=== PATIENT | female | born 2005 | race Caucasian/White ===

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

== ENCOUNTER 2023-02-13 00:59 | Emergency (ER) | payer BC, OTHER ==
--- NOTE | 2023-02-13 01:43 | ED ---
Head Injury HPI - General Chief complaint: Head Injury Stated complaint: Head Injury Time Seen by Provider: 02/13/23 01:17 Source: patient Mode of arrival: ambulatory - History of Present Illness Initial comments: Patient is a 17-year-old female presenting to the emergency room after hitting her head on a door just prior to her arrival to the emergency room. She reports swelling and pain with a small laceration to her forehead from the event and a mild headache initially but denies any headache at this time. She denies any loss of consciousness. She denies any other complaints or concerns including any focal neurological deficits, weakness, blurred or double vision, dizziness, nausea or vomiting. She is healthy without any significant past medical history and does not take any medications on a regular basis. - Related Data Home Medications Medication Instructions Recorded Confirmed HYDROcodone/APAP 5-325MG [[place] 1 - 2 tab PO Q4HR PRN 12/04/20 12/04/20 5-325] Ibuprofen [Advil] 400 mg PO Q8H PRN 12/04/20 12/04/20 Previous Rx's Medication Instructions Recorded Azithromycin [Zithromax Z Pack] 250 mg PO DAILY 4 Days #4 tab 12/02/22 Allergies/Adverse reactions: Allergies Allergy/AdvReac Type Severity Reaction Status Date / Time Penicillins Allergy Unknown Itching Verified 02/13/23 01:06 Review of Systems ROS Statement: Those systems with pertinent positive or pertinent negative responses have been documented in the HPI. ROS Other: All systems not noted in ROS Statement are negative. Past Medical History Past Medical History: No Reported History History of Any Multi-Drug Resistant Organisms: None Reported Past Surgical History: No Surgical Hx Reported Past Psychological History: Anxiety Smoking Status: Vaper Past Alcohol Use History: None Reported Past Drug Use History: None Reported - Past Family History Mother Family Medical History: Congestive Heart Failure (CHF), Diabetes Mellitus, Hypertension Additional Family Medical History / Comment(s): Patient's maternal grandparents due to CHF/diabetes/HTN per mother. Father Family Medical History: Congestive Heart Failure (CHF), Diabetes Mellitus Additional Family Medical History / Comment(s): Patient's paternal grandparents have diabetes and HTN. General Exam - General Exam Comments Initial Comments: GENERAL: No acute distress, well developed, well nourished. HEENT: Normocephalic. Pupils equal, round, reactive to light. Moist mucous membranes. EOMI. Oval hematoma center mid forehead approximately 2.5 cm x 2 in size with height of approximately 1 cm. Centrally located laceration to hematoma minimal depth well approximated 0.75 cm in length. LUNGS: No respiratory distress or use of accessory muscles. HEART: Regular rate.. ABDOMEN: Non-distended. BACK: Normal inspection. EXTREMITIES: No edema. No tenderness. Moves all extremities. NEUROLOGIC: Alert & oriented x 3. CN II-XII grossly intact. PSYCHIATRIC: Normal affect and behavior. DERMATOLOGIC: Small linear laceration to forehead as indicated above. All other visualized skin intact, without rashes or lesions noted. Course Vital Signs 02/13/23 02/13/23 01:03 02:20 Temperature 98.4 F 98.7 F Pulse Rate 95 80 Respiratory 16 18 Rate Blood Pressure 134/77 125/60 O2 Sat by Pulse 100 99 Oximetry Medical Decision Making - Medical Decision Making Was pt. sent in by a medical professional or institution (, PA, TUBING OILER, urgent care, hospital, or halfway...) When possible be specific @ -No Did you speak to anyone other than the patient for history (EMS, parent, family, police, friend...)? What history was obtained from this source @ -No Did you review nursing and triage notes (agree or disagree)? Why? @ -I reviewed and agree with nursing and triage notes Were old charts reviewed (outside hosp., previous admission, EMS record, old EKG, old radiological studies, urgent care reports/EKG's, halfway records)? Report findings @ -No old charts were reviewed Differential Diagnosis (chest pain, altered mental status, abdominal pain women, abdominal pain men, vaginal bleeding, weakness, fever, dyspnea, syncope, heada aurora, dizziness, GI bleed, back pain, seizure, CVA, palpatations, mental health, musculoskeletal)? @ -not applicable EKG interpreted by me (3pts min.). @ -None done X-rays interpreted by me (1pt min.). @ -None done CT interpreted by me (1pt min.). @ -None done U/S interpreted by me (1pt. min.). @ -None done What testing was considered but not performed or refused? (CT, X-rays, U/S, labs)? Why? @ -Computed tomography scan of head considered but deferred due to age, no loss of consciousness, normal neurological exam and lack of blood thinner usage. What meds were considered but not given or refused? Why? @ -None Did you discuss the management of the patient with other professionals (professionals i.e. , PA, TUBING OILER, lab, RT, psych nurse, social work instructor, welding machine operator resistance, teacher, money position officer, medical case worker)? Give summary @ -No Was smoking cessation discussed for >3mins.? @ -No Was critical care preformed (if so, how long)? @ -No Were there social determinants of health that impacted care today? How? (Homelessness, low income, unemployed, alcoholism, drug addiction, transportation, low edu. Level, literacy, decrease access to med. care, [facility], rehab)? @ -No Was there de-escalation of care discussed even if they declined (Discuss DNR or withdrawal of care, Hospice)? DNR status @ -No What co-morbidities impacted this encounter? (DM, HTN, Smoking, COPD, CAD, Cancer, CVA, ARF, Chemo, Hep., AIDS, mental health diagnosis, sleep apnea, morbid obesity)? @ -None Was patient admitted / discharged? Hospital course, mention meds given and route, prescriptions, significant lab abnormalities, going to OR and other pertinent info. @ -17-year-old female presenting to the emergency room after hitting her head on a door just prior to arrival. Hematoma to forehead noted with small laceration. No loss of consciousness, no blood thinner usage, no severe symptoms indicating need for computed tomography scan. Small laceration noted will apply Steri-Strips to aid in the healing process, no indication for suture closure. No indication for medication administration. No indication for serum studies. Concussive symptoms discussed including when to return to the emergency room. Wound care of hematoma and laceration reviewed. Follow-up care with her primary care provider encouraged. Will discharge home in stable condition with Steri-Strips intact to laceration on hematoma of forehead advising follow-up with primary care provider. Undiagnosed new problem with uncertain prognosis? @ -No Drug Therapy requiring intensive monitoring for toxicity (Heparin, Nitro, Insulin, Cardizem)? @ -No Were any procedures done? @ -Yes, Steri-Strips applied to forehead, tolerated well. Diagnosis/symptom? @ -Hematoma to forehead head Acute, or Chronic, or Acute on Chronic? @ -Acute Uncomplicated (without systemic symptoms) or Complicated (systemic symptoms)? @ -Uncomplicated Side effects of treatment? @ -No Exacerbation, Progression, or Severe Exacerbation? @ -No Poses a threat to life or bodily function? How? (Chest pain, USA, MS, pneumonia, PE, COPD, DKA, ARF, appy, cholecystitis, CVA, Diverticulitis, Homicidal, Suicidal, threat to staff... and all critical care pts) @ -No Diagnosis/symptom? @ -Laceration to forehead Acute, or Chronic, or Acute on Chronic? @ -Acute Uncomplicated (without systemic symptoms) or Complicated (systemic symptoms)? @ -Uncomplicated Side effects of treatment? @ -none Exacerbation, Progression, or Severe Exacerbation] @ -no Poses a threat to life or bodily function? @ -no Case discussed with Dr. Apple Disposition Clinical Impression: Traumatic hematoma of forehead, Laceration Disposition: HOME SELF-CARE Condition: Stable Instructions (If sedation given, give patient instructions): Concussion (ED), Steristrips (ED) Additional Instructions: Please keep wound to forehead clean and dry. Do not pull off Steri-Strips. Monitor for concussive symptoms and return to the emergency room if they become severe. Please follow-up with your primary care provider. Please return to the Emergency Department if symptoms worsen or any other concerns. Is patient prescribed a controlled substance at d/c from ED?: No Referrals: None,Stated [Primary Care Provider] - 1-2 days Time of Disposition: 01:57
[2023-02-13 02:21] VITALS: BP 125/60; PULSE 80; RESP 18; TEMP 98.7
== END 2023-02-13 02:44 | disposition home or self-care (01) ==
LOC: EC 00:59
DX: S01.81XA Laceration without foreign body of other part of head, initial encounter (principal); F41.9 Anxiety disorder, unspecified; F17.290 Nicotine dependence, other tobacco product, uncomplicated; Z88.0 Allergy status to penicillin; W22.8XXA Striking against or struck by other objects, initial encounter
CPT/HCPCS: 12011; 99283

== ENCOUNTER 2023-04-17 00:59 | Emergency (ER) | payer BC, OTHER ==
[2023-04-17] MEDS ORDERED: LIDOCAINE 1% INJ 10MG/ML (30 ML VIAL-PF) SQ ONE (01:20)
[2023-04-17] MEDS ORDERED: DIPH,PERTUS(ACELL)TETVAC-LF 0.5 ML VIAL IM ONE (01:20)
--- NOTE | 2023-04-17 01:27 | ED ---
Wound/Laceration HPI - General Chief Complaint: Wound/Laceration Stated Complaint: Right leg injury Time Seen by Provider: 04/17/23 01:16 Source: patient Mode of arrival: ambulatory Limitations: no limitations - History of Present Illness Initial Comments: Patient is a 18-year-old female presenting to the emergency room with a laceration to her right anterior lower extremity which she obtained approximately 2 hours prior to her arrival to the emergency room on a pullout couch. She reports that she was assisting pulling it out when another friend accidentally pushed the metal into her leg causing the laceration. She is unsure of her tetanus status. She denies any range of motion impairment, concern for foreign body, numbness or tingling in the extremity. She denies any injury to any other location. She denies any significant past medical history and does not take any medications on a regular basis. - Related Data Home Medications Medication Instructions Recorded Confirmed HYDROcodone/APAP 5-325MG [[place] 1 - 2 tab PO Q4HR PRN 12/04/20 12/04/20 5-325] Ibuprofen [Advil] 400 mg PO Q8H PRN 12/04/20 12/04/20 Previous Rx's Medication Instructions Recorded Azithromycin [Zithromax Z Pack] 250 mg PO DAILY 4 Days #4 tab 12/02/22 Allergies Allergy/AdvReac Type Severity Reaction Status Date / Time Penicillins Allergy Unknown Itching Verified 04/17/23 01:03 Review of Systems ROS Statement: Those systems with pertinent positive or pertinent negative responses have been documented in the HPI. ROS Other: All systems not noted in ROS Statement are negative. 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 History of Any Multi-Drug Resistant Organisms: None Reported Past Surgical History: No Surgical Hx Reported Past Psychological History: Anxiety Smoking Status: Vaper Past Alcohol Use History: None Reported Past Drug Use History: None Reported - Past Family History Mother Family Medical History: Congestive Heart Failure (CHF), Diabetes Mellitus, Hypertension Additional Family Medical History / Comment(s): Patient's maternal grandparents due to CHF/diabetes/HTN per mother. Father Family Medical History: Congestive Heart Failure (CHF), Diabetes Mellitus Additional Family Medical History / Comment(s): Patient's paternal grandparents have diabetes and HTN. General Exam Limitations: no limitations General appearance: alert, in no apparent distress Head exam: Present: atraumatic, normocephalic, normal inspection Eye exam: Present: normal appearance, PERRL, EOMI. Absent: scleral icterus, conjunctival injection, periorbital swelling ENT exam: Present: normal exam, mucous membranes moist Neck exam: Present: normal inspection, full ROM Respiratory exam: Absent: respiratory distress, accessory muscle use Cardiovascular Exam: Present: regular rate GI/Abdominal exam: Absent: distended Right Lower Leg exam: Present: full ROM, laceration (Anterior medial aspect 2 cm in length). Absent: swelling, deformity, crepitus, dislocation Neurovascular tendon exam: Present: no vascular compromise Gait: observed and normal Back exam: Present: normal inspection Neurological exam: Present: alert, oriented X3, CN II-XII intact Psychiatric exam: Present: normal affect, normal mood Skin exam: Present: other (Laceration as indicated above) Course Vital Signs 04/17/23 04/17/23 01:02 01:03 Temperature 99.1 F 98 F Pulse Rate 77 96 Respiratory 16 18 Rate Blood Pressure 122/86 138/57 O2 Sat by Pulse 97 99 Oximetry Procedures - Laceration Laceration #1 Indication: laceration Site: lower extremity Size (cm): 2 Description: linear Depth: simple, single layer Anesthetic Used: lidocaine 1% Anesthesia Technique: local infiltration Pre-repair: deep structures intact Type of Sutures: nylon Size of Sutures: 4-0 Technique: simple, interrupted Patient Tolerated Procedure: well, no complications Medical Decision Making - Medical Decision Making Was pt. sent in by a medical professional or institution (Dr. PA, [facility], urgent care, hospital, or long-term...) When possible be specific @ -No Did you speak to anyone other than the patient for history (EMS, parent, family, police, friend...)? What history was obtained from this source @ -No Did you review nursing and triage notes (agree or disagree)? Why? @ -I reviewed and agree with nursing and triage notes Were old charts reviewed (outside hosp., previous admission, EMS record, old EKG, old radiological studies, urgent care reports/EKG's, long-term records)? Report findings @ -No old charts were reviewed Differential Diagnosis (chest pain, altered mental status, abdominal pain women, abdominal pain men, vaginal bleeding, weakness, fever, dyspnea, syncope, heada aurora, dizziness, GI bleed, back pain, seizure, CVA, palpatations, mental health, musculoskeletal)? @ -not applicable EKG interpreted by me (3pts min.). @ -None done X-rays interpreted by me (1pt min.). @ -None done CT interpreted by me (1pt min.). @ -None done U/S interpreted by me (1pt. min.). @ -None done What testing was considered but not performed or refused? (CT, X-rays, U/S, labs)? Why? @ -None What meds were considered but not given or refused? Why? @ -None Did you discuss the management of the patient with other professionals (professionals i.e. , PA, [facility], lab, RT, psych nurse, manager social services, rectifying attendant, teacher, police officer crime prevention, family caseworker)? Give summary @ -No Was smoking cessation discussed for >3mins.? @ -No Was critical care preformed (if so, how long)? @ -No Were there social determinants of health that impacted care today? How? (Homelessness, low income, unemployed, alcoholism, drug addiction, transportation, low edu. Level, literacy, decrease access to med. care, [facility], rehab)? @ -No Was there de-escalation of care discussed even if they declined (Discuss DNR or withdrawal of care, Hospice)? DNR status @ -No What co-morbidities impacted this encounter? (DM, HTN, Smoking, COPD, CAD, Cancer, CVA, ARF, Chemo, Hep., AIDS, mental health diagnosis, sleep apnea, morbid obesity)? @ -None Was patient admitted / discharged? Hospital course, mention meds given and route, prescriptions, significant lab abnormalities, going to OR and other pertinent info. @ -18-year-old female presenting to the emergency room with laceration to right lower extremity. No concerns for blunt force trauma or foreign body. No indication for diagnostic imaging or laboratory studies. Unsure of tetanus status will update tetanus. No indication for antibiotic therapy. Laceration closure completed without complications. Wound care discussed along with follow-up for suture removal. Questions and concerns answered. Return parameters to the emergency room discussed. Will discharge home in stable conditions with sutures intact to laceration to right lower extremity advising return to the emergency room in 7-10 days for removal and follow-up with primary care provider as needed. Undiagnosed new problem with uncertain prognosis? @ -No Drug Therapy requiring intensive monitoring for toxicity (Heparin, Nitro, Insulin, Cardizem)? @ -No Were any procedures done? @ -Yes, suture closure of laceration see procedures for details Diagnosis/symptom? @ -Laceration Acute, or Chronic, or Acute on Chronic? @ -Acute Uncomplicated (without systemic symptoms) or Complicated (systemic symptoms)? @ -Uncomplicated Side effects of treatment? @ -No Exacerbation, Progression, or Severe Exacerbation? @ -No Poses a threat to life or bodily function? How? (Chest pain, [place], [place], pneumonia, PE, COPD, DKA, ARF, appy, cholecystitis, CVA, Diverticulitis, Homicidal, Suicidal, threat to staff... and all critical care pts) @ -No Case discussed with Dr. Hodge. Disposition Clinical Impression: Laceration Disposition: HOME SELF-CARE Condition: Stable Additional Instructions: Please keep wound clean and dry. Monitor for signs and symptoms of infection and seek medical attention as appropriate if symptoms occur. Please return to the emergency department for suture removal in 7-10 days. Please return to the Emergency Department if symptoms worsen or any other concerns. Is patient prescribed a controlled substance at d/c from ED?: No Referrals: None,Stated [Primary Care Provider] - 1-2 days Time of Disposition: 01:57
[2023-04-17 02:33] VITALS: BP 130/83; PULSE 102; RESP 16; TEMP 98.8
== END 2023-04-17 02:32 | disposition home or self-care (01) ==
LOC: EC 00:59
DX: S81.811A Laceration without foreign body, right lower leg, initial encounter (principal); F41.9 Anxiety disorder, unspecified; F17.290 Nicotine dependence, other tobacco product, uncomplicated; Z88.0 Allergy status to penicillin; Z79.899 Other long term (current) drug therapy; Z23 Encounter for immunization; W26.8XXA Contact with other sharp object(s), not elsewhere classified, initial encounter
CPT/HCPCS: 90715; 99283; 90471; 12001; J2001

== ENCOUNTER 2023-05-31 23:56 | Emergency (ER) | payer BC, OTHER ==
[2023-06-01 00:32] VITALS: TEMP 99
--- NOTE | 2023-06-01 01:52 | ED ---
Fall HPI - General Chief Complaint: Fall Stated Complaint: fall-tripped Time Seen by Provider: 06/01/23 00:57 Source: patient, family, RN notes reviewed Mode of arrival: ambulatory - History of Present Illness Initial Comments: Patient is a pleasant 18-year-old female presenting to the emergency room with her mother for further evaluation of pain in her waist region after falling and landing on her left leg which she believed chart her waist. She denies any range of motion impairment in her abdomen or her left lower extremity. She denies any wounds or any injury to any other location. She does have severe social anxiety and mother believes that her anxiety may be playing a role in her request for evaluation. She denies any other complaints at this time including any chest pain, abdominal pain, nausea, vomiting, headache, or dizziness. She has no other significant past medical history. - Related Data Home Medications Medication Instructions Recorded Confirmed HYDROcodone/APAP 5-325MG [[place] 1 - 2 tab PO Q4HR PRN 12/04/20 12/04/20 5-325] Ibuprofen [Advil] 400 mg PO Q8H PRN 12/04/20 12/04/20 Previous Rx's Medication Instructions Recorded Azithromycin [Zithromax Z Pack] 250 mg PO DAILY 4 Days #4 tab 12/02/22 Allergies Allergy/AdvReac Type Severity Reaction Status Date / Time Penicillins Allergy Unknown Itching Verified 06/01/23 00:32 Review of Systems ROS Statement: Those systems with pertinent positive or pertinent negative responses have been documented in the HPI. ROS Other: All systems not noted in ROS Statement are negative. 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 History of Any Multi-Drug Resistant Organisms: None Reported Past Surgical History: No Surgical Hx Reported Past Psychological History: Anxiety Smoking Status: Vaper Past Alcohol Use History: None Reported Past Drug Use History: None Reported - Past Family History Mother Family Medical History: Congestive Heart Failure (CHF), Diabetes Mellitus, Hypertension Additional Family Medical History / Comment(s): Patient's maternal grandparents due to CHF/diabetes/HTN per mother. Father Family Medical History: Congestive Heart Failure (CHF), Diabetes Mellitus Additional Family Medical History / Comment(s): Patient's paternal grandparents have diabetes and HTN. General Exam Limitations: no limitations General appearance: alert, in no apparent distress Head exam: Present: atraumatic, normocephalic, normal inspection Eye exam: Present: normal appearance, PERRL, EOMI. Absent: scleral icterus, conjunctival injection, periorbital swelling ENT exam: Present: normal exam, mucous membranes moist Neck exam: Present: normal inspection, full ROM Respiratory exam: Present: normal lung sounds bilaterally. Absent: respiratory distress, wheezes, rales, rhonchi, stridor Cardiovascular Exam: Present: regular rate, normal rhythm, normal heart sounds. Absent: systolic murmur, diastolic murmur, rubs, gallop, clicks GI/Abdominal exam: Present: soft, normal bowel sounds. Absent: distended, tenderness, guarding, rebound, rigid Left Hip exam: Present: normal inspection, full ROM. Absent: tenderness, swelling, abrasion, laceration, ecchymosis, deformity, crepitus, dislocation, erythema, external rotation, internal rotation, shortening Upper Leg exam: Present: normal inspection, full ROM. Absent: tenderness, swelling, abrasion, laceration, ecchymosis, deformity Gait: observed and normal Back exam: Present: normal inspection Neurological exam: Present: alert, oriented X3, CN II-XII intact Psychiatric exam: Present: anxious Skin exam: Present: warm, dry, intact, normal color. Absent: rash Course Vital Signs 06/01/23 06/01/23 00:30 02:04 Temperature 99 F Pulse Rate 81 89 Respiratory 18 16 Rate Blood Pressure 116/68 111/72 O2 Sat by Pulse 96 100 Oximetry Medical Decision Making - Medical Decision Making Was pt. sent in by a medical professional or institution (, PA, [facility] [employer], urgent care, hospital, or prison...) When possible be specific @ -No Did you speak to anyone other than the patient for history (EMS, parent, family, police, friend...)? What history was obtained from this source @ -Yes, details regarding past medical history discussed with mother at bedside Did you review nursing and triage notes (agree or disagree)? Why? @ -I reviewed and agree with nursing and triage notes Were old charts reviewed (outside hosp., previous admission, EMS record, old EKG, old radiological studies, urgent care reports/EKG's, prison records)? Report findings @ -No old charts were reviewed Differential Diagnosis (chest pain, altered mental status, abdominal pain women, abdominal pain men, vaginal bleeding, weakness, fever, dyspnea, syncope, headache, dizziness, GI bleed, back pain, seizure, CVA, palpatations, mental health, musculoskeletal)? @ -Differential Musculoskeletal Muscular strain, contusion, ligament sprain, fracture, arthritis, septic arthritis, bursitis, cellulitis, muscle spasm, nerve compression, DVT, arterial occlusion, herpes zoster, electrolyte abnormality, tumor.... This is not meant to be in all inclusive list EKG interpreted by me (3pts min.). @ -None done X-rays interpreted by me (1pt min.). @ -X-ray KUB: No evidence of bowel obstruction, pelvis with healed pubic ramus fracture no evidence of acute fracture or subluxation. CT interpreted by me (1pt min.). @ -None done U/S interpreted by me (1pt. min.). @ -None done What testing was considered but not performed or refused? (CT, X-rays, U/S, labs)? Why? @ -None What meds were considered but not given or refused? Why? @ -None Did you discuss the management of the patient with other professionals (professionals i.e. , PA, [facility] [employer], lab, RT, psych nurse, oncology social worker, boxing trainer, teacher, [employer] plans staff officer, piano case maker)? Give summary @ -No Was smoking cessation discussed for >3mins.? @ -No Was critical care preformed (if so, how long)? @ -No Were there social determinants of health that impacted care today? How? (Homelessness, low income, unemployed, alcoholism, drug addiction, transportation, low edu. Level, literacy, decrease access to med. care, long-term, rehab)? @ -No Was there de-escalation of care discussed even if they declined (Discuss DNR or withdrawal of care, Hospice)? DNR status @ -No What co-morbidities impacted this encounter? (DM, HTN, Smoking, COPD, CAD, Cancer, CVA, ARF, Chemo, Hep., AIDS, mental health diagnosis, sleep apnea, morbid obesity)? @ -None Was patient admitted / discharged? Hospital course, mention meds given and route, prescriptions, significant lab abnormalities, going to OR and other pertinent info. @ -18-year-old female presenting to the emergency room with complaints of pain in the waist region after falling and landing on her left upper leg prior to her arrival to the emergency room. She denies any range of motion or pain in her leg. She denies any analgesic need. Will obtain KUB to evaluate pelvis and abdominal region. No indication for any serum studies or any other diagnostic imaging. KUB image reviewed demonstrating no evidence of acute pelvic fracture, hip fracture free air or obstruction in the abdomen. Findings discussed with patient and mother. Advised range of motion as tolerated, fall precautions and use of [id number] Tylenol or Motrin as needed for pain. Questions and concerns answered. Return parameters the emergency room discussed. Will discharge patient home in stable condition advising use of [id number] analgesics for pain as needed status post fall encouraging follow-up with primary care provider Undiagnosed new problem with uncertain prognosis? @ -No Drug Therapy requiring intensive monitoring for toxicity (Heparin, Nitro, Insul in, Cardizem)? @ -No Were any procedures done? @ -No Diagnosis/symptom? @ -Fall Acute, or Chronic, or Acute on Chronic? @ -Acute Uncomplicated (without systemic symptoms) or Complicated (systemic symptoms)? @ -Uncomplicated Side effects of treatment? @ -No Exacerbation, Progression, or Severe Exacerbation? @ -No Poses a threat to life or bodily function? How? (Chest pain, [place], [place], pneumonia, PE, COPD, DKA, ARF, appy, cholecystitis, CVA, Diverticulitis, Homicidal, Suicidal, threat to staff... and all critical care pts) @ -No Case discussed with Dr. Maldonado. - Radiology Data Radiology results: image reviewed Disposition Clinical Impression: Fall Disposition: HOME SELF-CARE Condition: Stable Instructions (If sedation given, give patient instructions): Fall Prevention (ED) Additional Instructions: Gentle range of motion as tolerated encouraged. Utilize [id number] Tylenol or Motrin as needed for pain. Please follow-up with your primary care provider. Please return to the Emergency Department if symptoms worsen or any other concerns. Is patient prescribed a controlled substance at d/c from ED?: No Referrals: None,Stated [Primary Care Provider] - 1-2 days Time of Disposition: 01:51
[2023-06-01 02:05] VITALS: BP 111/72; PULSE 89; RESP 16
--- NOTE | 2023-06-01 03:01 | ED ---
Fall HPI - General Chief Complaint: Fall Stated Complaint: fall-tripped Time Seen by Provider: 06/01/23 00:57 Source: patient Mode of arrival: ambulatory - Related Data Home Medications Medication Instructions Recorded Confirmed HYDROcodone/APAP 5-325MG [[place] 1 - 2 tab PO Q4HR PRN 12/04/20 12/04/20 5-325] Ibuprofen [Advil] 400 mg PO Q8H PRN 12/04/20 12/04/20 Previous Rx's Medication Instructions Recorded Azithromycin [Zithromax Z Pack] 250 mg PO DAILY 4 Days #4 tab 12/02/22 Allergies Allergy/AdvReac Type Severity Reaction Status Date / Time Penicillins Allergy Unknown Itching Verified 06/01/23 00:32 Review of Systems ROS Statement: Those systems with pertinent positive or pertinent negative responses have been documented in the HPI. ROS Other: All systems not noted in ROS Statement are negative. 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 History of Any Multi-Drug Resistant Organisms: None Reported Past Surgical History: No Surgical Hx Reported Past Psychological History: Anxiety Smoking Status: Vaper Past Alcohol Use History: None Reported Past Drug Use History: None Reported - Past Family History Mother Family Medical History: Congestive Heart Failure (CHF), Diabetes Mellitus, Hypertension Additional Family Medical History / Comment(s): Patient's maternal grandparents due to CHF/diabetes/HTN per mother. Father Family Medical History: Congestive Heart Failure (CHF), Diabetes Mellitus Additional Family Medical History / Comment(s): Patient's paternal grandparents have diabetes and HTN. General Exam Limitations: no limitations Course Vital Signs 06/01/23 00:30 Temperature 99 F Pulse Rate 81 Respiratory 18 Rate Blood Pressure 116/68 O2 Sat by Pulse 96 Oximetry Disposition Referrals: None,Stated [Primary Care Provider] - 1-2 days
--- NOTE | 2023-06-01 03:07 | XR ---
EXAM: XR Abdomen, 1 View CLINICAL HISTORY: ITS.REASON XR Reason: fall TECHNIQUE: Frontal supine view of the abdomen/pelvis. COMPARISON: No relevant prior studies available. FINDINGS: Gastrointestinal tract: Unremarkable. No dilation. Bones/joints: Deformity of the right pubic rami, correlate for old fracture. No acute-appearing fracture. IMPRESSION: 1. No acute-appearing fracture. 2. Deformity of the right pubic rami, correlate for old fracture.
== END 2023-06-01 02:33 | disposition home or self-care (01) ==
LOC: EC 23:56
DX: M79.605 Pain in left leg (principal); F17.290 Nicotine dependence, other tobacco product, uncomplicated; Z86.59 Personal history of other mental and behavioral disorders; Z88.0 Allergy status to penicillin; W01.0XXA Fall on same level from slipping, tripping and stumbling without subsequent striking against object, initial encounter
CPT/HCPCS: 74018; 99283

== ENCOUNTER 2023-10-05 20:30 | Emergency (ER) | payer BC, OTHER ==
--- NOTE | 2023-10-05 21:04 | ED ---
Skin/Abscess/FB HPI - General Chief complaint: Skin/Abscess/Foreign Body Stated complaint: Blu on neck and arm Time Seen by Provider: 10/05/23 20:46 Source: patient, RN notes reviewed Mode of arrival: ambulatory Limitations: no limitations - History of Present Illness Initial comments: 18-year-old female presents emergency Department chief complaint of rash on the left side of her neck, left arm.. Patient states is very circular make she had a history of ringworm states is exactly the same. Patient offers no other associated symptoms. No fevers or chills. - Related Data Home Medications Medication Instructions Recorded Confirmed HYDROcodone/APAP 5-325MG [[place] 1 - 2 tab PO Q4HR PRN 12/04/20 12/04/20 5-325] Ibuprofen [Advil] 400 mg PO Q8H PRN 12/04/20 12/04/20 Previous Rx's Medication Instructions Recorded Azithromycin [Zithromax Z Pack] 250 mg PO DAILY 4 Days #4 tab 12/02/22 Butenafine HCl [Lotrimin Ultra] 1 applic TOPICAL BID #24 gm 10/05/23 Allergies Allergy/AdvReac Type Severity Reaction Status Date / Time Penicillins Allergy Unknown Itching Verified 10/05/23 20:44 Review of Systems ROS Statement: Those systems with pertinent positive or pertinent negative responses have been documented in the HPI. ROS Other: All systems not noted in ROS Statement are negative. 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 History of Any Multi-Drug Resistant Organisms: None Reported Past Surgical History: No Surgical Hx Reported Past Psychological History: Anxiety Smoking Status: Vaper Past Alcohol Use History: None Reported Past Drug Use History: None Reported - Past Family History Mother Family Medical History: Congestive Heart Failure (CHF), Diabetes Mellitus, Hypertension Additional Family Medical History / Comment(s): Patient's maternal grandparents due to CHF/diabetes/HTN per mother. Father Family Medical History: Congestive Heart Failure (CHF), Diabetes Mellitus Additional Family Medical History / Comment(s): Patient's paternal grandparents have diabetes and HTN. General Exam Limitations: no limitations General appearance: alert, in no apparent distress Head exam: Present: atraumatic, normocephalic, normal inspection Neck exam: Present: full ROM. Absent: normal inspection (Side of the neck circular raised border for rash), tenderness, meningismus, lymphadenopathy Respiratory exam: Present: normal lung sounds bilaterally. Absent: respiratory distress, wheezes, rales, rhonchi, stridor Cardiovascular Exam: Present: regular rate, normal rhythm, normal heart sounds. Absent: systolic murmur, diastolic murmur, rubs, gallop, clicks Course Vital Signs 10/05/23 20:41 Temperature 98.4 F Pulse Rate 81 Respiratory 18 Rate Blood Pressure 131/57 O2 Sat by Pulse 100 Oximetry Medical Decision Making - Medical Decision Making Was pt. sent in by a medical professional or institution (, HEMA, CARD CUTTER, urgent care, hospital, or [facility]...) When possible be specific @ -No Did you speak to anyone other than the patient for history (EMS, parent, family, police, friend...)? What history was obtained from this source @ -No Did you review nursing and triage notes (agree or disagree)? Why? @ -I reviewed and agree with nursing and triage notes Were old charts reviewed (outside hosp., previous admission, EMS record, old EKG, old radiological studies, urgent care reports/EKG's, [facility] records)? Report findings @ -No old charts were reviewed Differential Diagnosis (chest pain, altered mental status, abdominal pain women, abdominal pain men, vaginal bleeding, weakness, fever, dyspnea, syncope, headache, dizziness, GI bleed, back pain, seizure, CVA, palpatations, mental health, musculoskeletal)? @ -tiniea corporis, contact dermatitis EKG interpreted by me (3pts min.). @ -None X-rays interpreted by me (1pt min.). @ -None done CT interpreted by me (1pt min.). @ -None done U/S interpreted by me (1pt. min.). @ -None done What testing was considered but not performed or refused? (CT, X-rays, U/S, labs)? Why? @ -None What meds were considered but not given or refused? Why? @ -None Did you discuss the management of the patient with other professionals (professionals i.e. HEMA Torres, CARD CUTTER, lab, RT, psych nurse, psychotherapist social worker, wagon person, teacher, health officer, dependency case manager)? Give summary @ -No Was smoking cessation discussed for >3mins.? @ -No Was critical care preformed (if so, how long)? @ -No Were there social determinants of health that impacted care today? How? (Homelessness, low income, unemployed, alcoholism, drug addiction, transportation, low edu. Level, literacy, decrease access to med. care, shelter, rehab)? @ -No Was there de-escalation of care discussed even if they declined (Discuss DNR or withdrawal of care, Hospice)? DNR status @ -No What co-morbidities impacted this encounter? (DM, HTN, Smoking, COPD, CAD, Cancer, CVA, ARF, Chemo, Hep., AIDS, mental health diagnosis, sleep apnea, morbid obesity)? @ -None Was patient admitted / discharged? Hospital course, mention meds given and route, prescriptions, significant lab abnormalities, going to OR and other pertinent info. @ -Discharge patient has tinea will be started on lotromin and return parameters were discussed. Undiagnosed new problem with uncertain prognosis? @ -No Drug Therapy requiring intensive monitoring for toxicity (Heparin, Nitro, Insulin, Cardizem)? @ -No Were any procedures done? @ -No Diagnosis/symptom? @ -[Tinea corporis Acute, or Chronic, or Acute on Chronic? @ -Acute Uncomplicated (without systemic symptoms) or Complicated (systemic symptoms)? @ -[Uncomplicated Side effects of treatment? @ -No Exacerbation, Progression, or Severe Exacerbation? @ -No Poses a threat to life or bodily function? How? (Chest pain, [place], [place], pneumonia, PE, COPD, DKA, ARF, appy, cholecystitis, CVA, Diverticulitis, Homicidal, Suicidal, threat to staff... and all critical care pts) @ -No Disposition Clinical Impression: Tinea corporis Disposition: HOME SELF-CARE Condition: Stable Instructions (If sedation given, give patient instructions): Tinea Corporis (ED) Additional Instructions: Please return to the Emergency Department if symptoms worsen or any other concerns. Prescriptions: Butenafine HCl [Lotrimin Ultra] 1 applic TOPICAL BID #24 gm Is patient prescribed a controlled substance at d/c from ED?: No Referrals: None,Stated [Primary Care Provider] - 1-2 days Time of Disposition: 21:02
[2023-10-05 21:06] VITALS: BP 131/57; PULSE 81; RESP 18; TEMP 98.4
== END 2023-10-05 21:18 | disposition home or self-care (01) ==
LOC: EC 20:30
DX: B35.4 Tinea corporis (principal); F17.290 Nicotine dependence, other tobacco product, uncomplicated; Z86.59 Personal history of other mental and behavioral disorders; Z88.0 Allergy status to penicillin
CPT/HCPCS: 99282

== ENCOUNTER 2023-10-27 01:17 | Emergency (ER) | payer BC ==
--- NOTE | 2023-10-27 01:48 | ED ---
Chest Pain HPI - General Chief Complaint: Chest Pain Stated Complaint: Chest pain Time Seen by Provider: 10/27/23 01:28 Source: patient Mode of arrival: ambulatory Limitations: no limitations - History of Present Illness MD Complaint: chest pain -: hour(s) Onset: during rest Pain Location: right chest Pain Radiation: neck Severity: moderate Quality: tightness Consistency: constant Improves With: nothing Worsens With: movement Treatments Prior to Arrival: none - Related Data Home Medications Medication Instructions Recorded Confirmed HYDROcodone/APAP 5-325MG [[place] 1 - 2 tab PO Q4HR PRN 12/04/20 12/04/20 5-325] Ibuprofen [Advil] 400 mg PO Q8H PRN 12/04/20 12/04/20 Previous Rx's Medication Instructions Recorded Azithromycin [Zithromax Z Pack] 250 mg PO DAILY 4 Days #4 tab 12/02/22 Butenafine HCl [Lotrimin Ultra] 1 applic TOPICAL BID #24 gm 10/05/23 Acetaminophen-Codeine 300-30mg 1 tab PO Q6H PRN 3 Days #12 tablet 11/03/23 [Tylenol w/codeine #3] Allergies Allergy/AdvReac Type Severity Reaction Status Date / Time Penicillins Allergy Unknown Itching Verified 10/27/23 01:25 Review of Systems ROS Statement: Those systems with pertinent positive or pertinent negative responses have been documented in the HPI. ROS Other: All systems not noted in ROS Statement are negative. Constitutional: Denies: fever, chills ENT: Denies: throat pain Respiratory: Denies: cough, dyspnea Cardiovascular: Reports: as per HPI, chest pain. Denies: palpitations, dyspnea on exertion, edema, syncope Gastrointestinal: Denies: abdominal pain, nausea, vomiting, diarrhea Genitourinary: Denies: dysuria, hematuria Musculoskeletal: Denies: back pain Skin: Denies: rash Neurological: Denies: headache, weakness, numbness EKG Findings - EKG Results: EKG: interpreted by KALEE, sinus rhythm, normal axis, normal ST/T - Blocks, [place], Hypertrophy, ST Abn: AV and intraventricular conduction: right bundle branch block (fixed/intermittent, complete/incomplete) (Incomplete) Past Medical History Past Medical History: No Reported History Additional Past Medical History / Comment(s): 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 History of Any Multi-Drug Resistant Organisms: None Reported Past Surgical History: No Surgical Hx Reported Past Psychological History: Anxiety Smoking Status: Vaper Past Alcohol Use History: None Reported Past Drug Use History: None Reported - Past Family History Mother Family Medical History: Congestive Heart Failure (CHF), Diabetes Mellitus, Hypertension Additional Family Medical History / Comment(s): Patient's maternal grandparents due to CHF/diabetes/HTN per mother. Father Family Medical History: Congestive Heart Failure (CHF), Diabetes Mellitus Additional Family Medical History / Comment(s): Patient's paternal grandparents have diabetes and HTN. General Exam Limitations: no limitations General appearance: alert, in no apparent distress Head exam: Present: atraumatic, normocephalic Eye exam: Present: normal appearance. Absent: scleral icterus, conjunctival injection Neck exam: Present: normal inspection Respiratory exam: Present: normal lung sounds bilaterally. Absent: respiratory distress, wheezes, rales, rhonchi, stridor, chest wall tenderness, accessory muscle use Cardiovascular Exam: Present: regular rate, normal rhythm, normal heart sounds. Absent: systolic murmur, diastolic murmur, rubs, gallop GI/Abdominal exam: Present: soft. Absent: distended, tenderness, guarding, rebound, rigid, mass Extremities exam: Present: normal inspection, normal capillary refill. Absent: pedal edema, calf tenderness Back exam: Present: normal inspection. Absent: CVA tenderness (R), CVA tenderness (L) Neurological exam: Present: alert Skin exam: Present: warm, dry, intact, normal color. Absent: rash Course Vital Signs 10/27/23 10/27/23 01:23 03:17 Temperature 98 F 98.1 F Pulse Rate 89 77 Respiratory 18 16 Rate Blood Pressure 122/83 121/77 O2 Sat by Pulse 99 98 Oximetry Chest Pain MDM - MDM On reevaluation, the patient is sleeping comfortably. She states the symptoms had completely resolved. The workup is unremarkable and patient has no risk factors. Discussed appropriate further care and follow-up as well as return parameters. Patient had chest x-ray which I interpreted as negative for pneumothorax, acute infiltrate, congestive heart failure. Was pt. sent in by a medical professional or institution (, PA, BOND UNDERWRITER, urgent care, hospital, or penitentiary...) When possible be specific @ -[No] Did you speak to anyone other than the patient for history (EMS, parent, family, police, friend...)? What history was obtained from this source @ -[No] Did you review nursing and triage notes (agree or disagree)? Why? @ -[I reviewed and agree with nursing and triage notes] Were old charts reviewed (outside hosp., previous admission, EMS record, old EKG, old radiological studies, urgent care reports/EKG's, penitentiary records)? Report findings @ -[No old charts were reviewed] Differential Diagnosis (chest pain, altered mental status, abdominal pain women, abdominal pain men, vaginal bleeding, weakness, fever, dyspnea, syncope, headache, dizziness, GI bleed, back pain, seizure, CVA, palpatations, mental health, musculoskeletal)? @ -[Differential Chest Pain: Stable Angina, Unstable Angina, STEMI, NSTEMI Aortic Dissection, Pneumothorax, Musculoskeletal, Esophageal Spasm GERD, Cholecystitis, Pancreatitis, Zoster, this is not meant to be an all-inclusive list. EKG interpreted by me (3pts min.). @ -[I interpreted above] X-rays interpreted by me (1pt min.). @ -[I interpreted as above CT interpreted by me (1pt min.). @ -[None done] U/S interpreted by me (1pt. min.). @ -[None done] What testing was considered but not performed or refused? (CT, X-rays, U/S, labs)? Why? @ -[None] What meds were considered but not given or refused? Why? @ -[None] Did you discuss the management of the patient with other professionals (professionals i.e. , PA, BOND UNDERWRITER, lab, RT, psych nurse, public health social worker, condenser operator, teacher, chief safety officer, senior case manager)? Give summary @ -[No] Was smoking cessation discussed for >3mins.? @ -[No] Was critical care preformed (if so, how long)? @ -[No] Were there social determinants of health that impacted care today? How? (Homelessness, low income, unemployed, alcoholism, drug addiction, transportation, low edu. Level, literacy, decrease access to med. care, long-term, rehab)? @ -[No] Was there de-escalation of care discussed even if they declined (Discuss DNR or withdrawal of care, Hospice)? DNR status @ -[No] What co-morbidities impacted this encounter? (DM, HTN, Smoking, COPD, CAD, Cancer, CVA, ARF, Chemo, Hep., AIDS, mental health diagnosis, sleep apnea, morbid obesity)? @ -[None] Was patient admitted / discharged? Hospital course, mention meds given and route, prescriptions, significant lab abnormalities, going to OR and other pertinent info. @ -[Patient is 18-year-old woman with upper chest pain to the right neck. There are some reproducible aspects to the pain. Her initial workup here is unremarkable and she is feeling well. We discussed appropriate further care and follow-up as well as return parameters. Undiagnosed new problem with uncertain prognosis? @ -[No] Drug Therapy requiring intensive monitoring for toxicity (Heparin, Nitro, Insulin, Cardizem)? @ -[No] Were any procedures done? @ -[No] Diagnosis/symptom? @ -[Acute chest pain Acute, or Chronic, or Acute on Chronic? @ -[default] Uncomplicated (without systemic symptoms) or Complicated (systemic symptoms)? @ -[Uncomplicated Side effects of treatment? @ -[No] Exacerbation, Progression, or Severe Exacerbation? @ -[No] Poses a threat to life or bodily function? How? (Chest pain, [place], [place], pneumonia, PE, COPD, DKA, ARF, appy, cholecystitis, CVA, Diverticulitis, Homicidal, Suicidal, threat to staff... and all critical care pts) @ -[No] Disposition Clinical Impression: Chest pain Disposition: HOME SELF-CARE Condition: Good Instructions (If sedation given, give patient instructions): Chest Pain (ED) Is patient prescribed a controlled substance at d/c from ED?: No Referrals: None,Stated [Primary Care Provider] - 1-2 days
[2023-10-27 02:10] LABS: ALT 16 U/L (4-34); AST 23 U/L (14-36); African American GFR (CKD) >90 (>60 ml/min/1.73 sqM); Albumin 4.4 g/dL (3.5-5.0); Alkaline Phosphatase 50 U/L (38-126); Amylase 88 U/L (30-110); Anion Gap 11 mmol/L; Blood Urea Nitrogen 11 mg/dL (7-17); Calcium 9.6 mg/dL (8.4-10.2); Carbon Dioxide 21 mmol/L (22-30); Chloride 104 mmol/L (98-107); Glucose 91 mg/dL (74-99); Lipase 117 U/L (23-300); Magnesium 1.8 mg/dL (1.6-2.3); Non-African American GFR(CKD) >90 (>60 ml/min/1.73 sqM); Sodium 136 mmol/L (137-145); Total Bilirubin 0.4 mg/dL (0.2-1.3); Total Protein 7.1 g/dL (6.3-8.2)
[2023-10-27 02:13] LABS: Basophils # (A) 0.1 k/uL (0-0.2); Basophils % (A) 1 %; Eosinophils % (A) 1 %; HCT 39.5 % (34.0-46.0); HGB 13.5 gm/dL (11.4-16.0); Lymphocytes # (A) 2.2 k/uL (1.0-4.8); Lymphocytes % (A) 36 %; MCH 31.7 pg (25.0-35.0); MCHC 34.1 g/dL (31.0-37.0); MCV 92.9 fL (80.0-100.0); Mean Platelet Volume 7.5; Monocytes # (A) 0.3 k/uL (0-1.0); Monocytes % (A) 5 %; Neutrophils # (A) 3.4 k/uL (1.3-7.7); Neutrophils % (A) 55 %; Platelet Count 204 k/uL (150-450); RBC 4.25 m/uL (3.80-5.40); RDW 12.2 % (11.5-15.5); WBC 6.1 k/uL (4.0-11.0)
[2023-10-27 02:26] LABS: Partial Thromboplastin Time 26.5 sec (22.0-30.0); Prothrombin Time 10.7 sec (10.0-12.5)
--- NOTE | 2023-10-27 02:30 | XR ---
EXAM: XR Chest, 2 Views CLINICAL HISTORY: ITS.REASON XR Reason: Chest Pain TECHNIQUE: Frontal and lateral views of the chest. COMPARISON: No relevant prior studies available. FINDINGS: Lungs: No consolidation or mass. Pleural space: No effusion. Heart: No cardiomegaly. Bones/joints: No acute findings. IMPRESSION: No acute cardiopulmonary process.
[2023-10-27 03:25] VITALS: BP 121/77; PULSE 77; RESP 16; TEMP 98.1
== END 2023-10-27 03:17 | disposition home or self-care (01) ==
LOC: EC 01:17
DX: I45.10 Unspecified right bundle-branch block (principal); F17.290 Nicotine dependence, other tobacco product, uncomplicated; Z86.59 Personal history of other mental and behavioral disorders; Z88.0 Allergy status to penicillin
CPT/HCPCS: 36415; 71046; 80053; 82150; 83690; 83735; 84484; 85025; 85379; 85610; 85730; 93005; 99285

== ENCOUNTER 2023-11-02 23:53 | Emergency (ER) | payer BC ==
[2023-11-03 00:32] VITALS: RESP 18; TEMP 98.7
--- NOTE | 2023-11-03 01:57 | ED ---
Fall HPI - General Chief Complaint: Fall Stated Complaint: Fall, hip injury Time Seen by Provider: 11/03/23 01:56 Source: patient Mode of arrival: wheelchair - History of Present Illness Initial Comments: 18-year-old female presenting with chief complaint of right-sided hip pain. Patient had a slip and fall on the ice this evening. She has history of fracture to the pubic bone states that this feels similar. Pain is focused near the right hip and is worse with weightbearing and ambulating. No loss of bowel or bladder control or saddle paresthesia. No numbness, tingling, weakness. - Related Data Home Medications Medication Instructions Recorded Confirmed HYDROcodone/APAP 5-325MG [[place] 1 - 2 tab PO Q4HR PRN 12/04/20 12/04/20 5-325] Ibuprofen [Advil] 400 mg PO Q8H PRN 12/04/20 12/04/20 Previous Rx's Medication Instructions Recorded Azithromycin [Zithromax Z Pack] 250 mg PO DAILY 4 Days #4 tab 12/02/22 Butenafine HCl [Lotrimin Ultra] 1 applic TOPICAL BID #24 gm 10/05/23 Acetaminophen-Codeine 300-30mg 1 tab PO Q6H PRN 3 Days #12 tablet 11/03/23 [Tylenol w/codeine #3] Allergies Allergy/AdvReac Type Severity Reaction Status Date / Time Penicillins Allergy Unknown Itching Verified 10/27/23 01:25 Review of Systems ROS Statement: Those systems with pertinent positive or pertinent negative responses have been documented in the HPI. ROS Other: All systems not noted in ROS Statement are negative. 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 History of Any Multi-Drug Resistant Organisms: None Reported Past Surgical History: No Surgical Hx Reported Past Psychological History: Anxiety Smoking Status: Vaper Past Alcohol Use History: None Reported Past Drug Use History: None Reported - Past Family History Mother Family Medical History: Congestive Heart Failure (CHF), Diabetes Mellitus, Hy pertension Additional Family Medical History / Comment(s): Patient's maternal grandparents due to CHF/diabetes/HTN per mother. Father Family Medical History: Congestive Heart Failure (CHF), Diabetes Mellitus Additional Family Medical History / Comment(s): Patient's paternal grandparents have diabetes and HTN. General Exam - General Exam Comments Initial Comments: Visual Physical Exam Vital signs reviewed General: Well-appearing, nontoxic, no acute distress. Head: Normocephalic, atraumatic Eyes: PERRLA, EOMI ENT: Airway patent Chest: Nonlabored breathing Skin: No visual rash, normal skin tone Neuro: Alert and oriented 3 Musculoskeletal: No gross abnormalities Limitations: no limitations General appearance: alert, in no apparent distress Head exam: Present: atraumatic, normocephalic Eye exam: Present: normal appearance Neck exam: Present: normal inspection Respiratory exam: Absent: respiratory distress Cardiovascular Exam: Present: regular rate Right Hip exam: Present: tenderness Neurological exam: Present: alert, oriented X3 Psychiatric exam: Present: normal affect, normal mood Skin exam: Present: warm, dry Course Vital Signs 11/03/23 11/03/23 00:04 04:08 Temperature 98.7 F Pulse Rate 93 89 Respiratory 18 18 Rate Blood Pressure 143/70 131/80 O2 Sat by Pulse 93 L 98 Oximetry Medical Decision Making - Medical Decision Making Was pt. sent in by a medical professional or institution (, PA, SLIDE DEVELOPER, urgent care, hospital, or custodial...) When possible be specific @ -No Did you speak to anyone other than the patient for history (EMS, parent, family, police, friend...)? What history was obtained from this source @ -No Did you review nursing and triage notes (agree or disagree)? Why? @ -I reviewed and agree with nursing and triage notes Were old charts reviewed (outside hosp., previous admission, EMS record, old EKG, old radiological studies, urgent care reports/EKG's, custodial records)? Report findings @ -No old charts were reviewed Differential Diagnosis (chest pain, altered mental status, abdominal pain women, abdominal pain men, vaginal bleeding, weakness, fever, dyspnea, syncope, headache, dizziness, GI bleed, back pain, seizure, CVA, palpatations, mental health, musculoskeletal)? @ -Differential Musculoskeletal Muscular strain, contusion, ligament sprain, fracture, arthritis, septic arthritis, bursitis, cellulitis, muscle spasm, nerve compression, DVT, arterial occlusion, herpes zoster, electrolyte abnormality, tumor.... This is not meant to be in all inclusive list EKG interpreted by me (3pts min.). @ -As above X-rays interpreted by me (1pt min.). @ -X-ray shows deformity of the right inferior pubic ramus suspicious for fracture CT interpreted by me (1pt min.). @ -None done U/S interpreted by me (1pt. min.). @ -None done What testing was considered but not performed or refused? (CT, X-rays, U/S, labs)? Why? @ -None What meds were considered but not given or refused? Why? @ -None Did you discuss the management of the patient with other professionals (professionals i.e. Dr., PA, SLIDE DEVELOPER, lab, RT, psych nurse, medical social worker, order manager, teacher, gunnery/ordnance officer, outpatient case manager)? Give summary @ -No Was smoking cessation discussed for >3mins.? @ -No Was critical care preformed (if so, how long)? @ -No Were there social determinants of health that impacted care today? How? (Homelessness, low income, unemployed, alcoholism, drug addiction, transportation, low edu. Level, literacy, decrease access to med. care, [place] [facility], rehab)? @ -No Was there de-escalation of care discussed even if they declined (Discuss DNR or withdrawal of care, Hospice)? DNR status @ -No What co-morbidities impacted this encounter? (DM, HTN, Smoking, COPD, CAD, Cancer, CVA, ARF, Chemo, Hep., AIDS, mental health diagnosis, sleep apnea, morbid obesity)? @ -None Was patient admitted / discharged? Hospital course, mention meds given and route, prescriptions, significant lab abnormalities, going to OR and other pertinent info. @ -18-year-old female presenting with chief complaint of right hip pain after a slip and fall this evening. No red flag symptoms. History and physical exam are obtained. X-ray shows deformity of the right inferior pubic ramus suspicious for fracture. Patient does have history of previous pubic ramus fracture. Patient is provided with crutches and pain medication, she is instructed to follow-up with orthopedics, she previously saw Dr. Saeed. Follow- up with PCP. Report back to ER with any new or worsening symptoms. Discussed return parameters and answered all questions. Patient conveyed verbal understanding and agreed to the plan. I discussed this case in detail with my attending Dr. Paez Undiagnosed new problem with uncertain prognosis? @ -No Drug Therapy requiring intensive monitoring for toxicity (Heparin, Nitro, Insulin, Cardizem)? @ -No Were any procedures done? @ -No Diagnosis/symptom? @ -Inferior pubic ramus fracture Acute, or Chronic, or Acute on Chronic? @ -Acute Uncomplicated (without systemic symptoms) or Complicated (systemic symptoms)? @ -Uncomplicated Side effects of treatment? @ -No Exacerbation, Progression, or Severe Exacerbation? @ -No Poses a threat to life or bodily function? How? (Chest pain, [place], [place], pneumonia, PE, COPD, DKA, ARF, appy, cholecystitis, CVA, Diverticulitis, Homicidal, Suicidal, threat to staff... and all critical care pts) @ -No Disposition Clinical Impression: Inferior pubic ramus fracture Disposition: HOME SELF-CARE Condition: Good Instructions (If sedation given, give patient instructions): Pelvic Fracture (ED) Additional Instructions: Follow up with orthopedics. Report back to ER with any new or worsening symptoms. Take Motrin and Tylenol as needed for pain control. Prescriptions: Acetaminophen-Codeine 300-30mg [Tylenol w/codeine #3] 1 tab PO Q6H PRN 3 Days #12 tablet PRN Reason: Pain Is patient prescribed a controlled substance at d/c from ED?: Yes When asked, does pt state using other controlled substances?: No If prescribed controlled substance>3 days was MAPS reviewed?: Prescribed <3 Days If opioid is for acute pain is fill amount 7 days or less?: Yes Referrals: None,Stated [Primary Care Provider] - 1-2 days Abdiaziz Guidry MD [Medical Doctor] - 1-2 days Time of Disposition: 03:57
[2023-11-03] MEDS ORDERED: KETOROLAC 15 MG/ML 1 ML VIAL IM STA (03:00)
--- NOTE | 2023-11-03 03:03 | XR ---
EXAM: XR Pelvis Complete, 3 or More Views CLINICAL HISTORY: ITS.REASON XR Reason: fall TECHNIQUE: Frontal and lateral or oblique views of the pelvis. COMPARISON: 2020 IMPRESSION: Deformity right inferior pubic ramus suspicious for fracture.
[2023-11-03 04:26] VITALS: BP 131/80; PULSE 89
== END 2023-11-03 04:29 | disposition home or self-care (01) ==
LOC: EC 23:53
DX: S32.501A Unspecified fracture of right pubis, initial encounter for closed fracture (principal); F17.290 Nicotine dependence, other tobacco product, uncomplicated; Z86.59 Personal history of other mental and behavioral disorders; Z88.0 Allergy status to penicillin; W00.0XXA Fall on same level due to ice and snow, initial encounter
CPT/HCPCS: 73502; 99283; 96372; J1885

== ENCOUNTER 2024-01-07 18:12 | Emergency (ER) | payer BC, OTHER ==
--- NOTE | 2024-01-07 18:46 | ED ---
General Adult HPI - General Chief complaint: Urogenital Stated complaint: Preg unkown wks Time Seen by Provider: 01/07/24 18:17 Source: patient, RN notes reviewed Mode of arrival: ambulatory Limitations: no limitations - History of Present Illness Initial comments: 18-year-old female presents to the emergency department for evaluation of unwanted . Patient states that she tested positive for today. She states that her last menstrual period was around the middle of last month. She states that she does not keep track of her cycles but is typically monthly. She reports nausea. Denies abdominal pain, vaginal bleeding, vaginal discharge. - Related Data Home Medications Medication Instructions Recorded Confirmed HYDROcodone/APAP 5-325MG [[place] 1 - 2 tab PO Q4HR PRN 12/04/20 12/04/20 5-325] Ibuprofen [Advil] 400 mg PO Q8H PRN 12/04/20 12/04/20 Previous Rx's Medication Instructions Recorded Azithromycin [Zithromax Z Pack] 250 mg PO DAILY 4 Days #4 tab 12/02/22 Butenafine HCl [Lotrimin Ultra] 1 applic TOPICAL BID #24 gm 10/05/23 Acetaminophen-Codeine 300-30mg 1 tab PO Q6H PRN 3 Days #12 tablet 11/03/23 [Tylenol w/codeine #3] Allergies Allergy/AdvReac Type Severity Reaction Status Date / Time Penicillins Allergy Unknown Itching Verified 10/27/23 01:25 Review of Systems ROS Statement: Those systems with pertinent positive or pertinent negative responses have been documented in the HPI. ROS Other: All systems not noted in ROS Statement are negative. 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 History of Any Multi-Drug Resistant Organisms: None Reported Past Surgical History: No Surgical Hx Reported Past Psychological History: Anxiety Smoking Status: Vaper Past Alcohol Use History: None Reported Past Drug Use History: None Reported - Past Family History Mother Family Medical History: Congestive Heart Failure (CHF), Diabetes Mellitus, Hypertension Additional Family Medical History / Comment(s): Patient's maternal grandparents due to CHF/diabetes/HTN per mother. Father Family Medical History: Congestive Heart Failure (CHF), Diabetes Mellitus Additional Family Medical History / Comment(s): Patient's paternal grandparents have diabetes and HTN. General Exam Limitations: no limitations General appearance: alert, in no apparent distress Head exam: Present: atraumatic, normocephalic, normal inspection Eye exam: Present: normal appearance, PERRL, EOMI. Absent: scleral icterus, conjunctival injection, periorbital swelling ENT exam: Present: normal exam, mucous membranes moist Neck exam: Present: normal inspection. Absent: tenderness, meningismus, lymphadenopathy Respiratory exam: Present: normal lung sounds bilaterally. Absent: respiratory distress, wheezes, rales, rhonchi, stridor Cardiovascular Exam: Present: regular rate, normal rhythm, normal heart sounds. Absent: systolic murmur, diastolic murmur, rubs, gallop, clicks GI/Abdominal exam: Present: soft. Absent: distended, tenderness, guarding, rebound, rigid Back exam: Present: normal inspection Neurological exam: Present: alert, oriented X3 Psychiatric exam: Present: normal affect, normal mood Skin exam: Present: warm, dry, intact, normal color. Absent: rash Course Vital Signs 01/07/24 01/07/24 18:14 19:32 Temperature 98.2 F Pulse Rate 100 78 Respiratory 20 18 Rate Blood Pressure 128/79 111/69 O2 Sat by Pulse 98 96 Oximetry Medical Decision Making - Medical Decision Making Was pt. sent in by a medical professional or institution ([facility], [facility], urgent care, hospital, or usp...) When possible be specific @ -No Did you speak to anyone other than the patient for history (EMS, parent, family, police, friend...)? What history was obtained from this source @ -No Did you review nursing and triage notes (agree or disagree)? Why? @ -I reviewed and agree with nursing and triage notes Were old charts reviewed (outside hosp., previous admission, EMS record, old EKG, old radiological studies, urgent care reports/EKG's, usp records)? Report findings @ -No old charts were reviewed Differential Diagnosis (chest pain, altered mental status, abdominal pain women, abdominal pain men, vaginal bleeding, weakness, fever, dyspnea, syncope, headache, dizziness, GI bleed, back pain, seizure, CVA, palpatations, mental health, musculoskeletal)? @ -Not applicable EKG interpreted by me (3pts min.). @ -None X-rays interpreted by me (1pt min.). @ -None done CT interpreted by me (1pt min.). @ -None done U/S interpreted by me (1pt. min.). @ -None done What testing was considered but not performed or refused? (CT, X-rays, U/S, labs)? Why? @ -None What meds were considered but not given or refused? Why? @ -None Did you discuss the management of the patient with other professionals (professionals i.e. DrFarhat, PA, SILVERER, lab, RT, psych nurse, manager social work, licensed marriage and family therapist, teacher, medical laboratory technical officer, case technician)? Give summary @ -No Was smoking cessation discussed for >3mins.? @ -No Was critical care preformed (if so, how long)? @ -No Were there social determinants of health that impacted care today? How? (Homelessness, low income, unemployed, alcoholism, drug addiction, transportation, low edu. Level, literacy, decrease access to med. care, group home, rehab)? @ -No Was there de-escalation of care discussed even if they declined (Discuss DNR or withdrawal of care, Hospice)? DNR status @ -No What co-morbidities impacted this encounter? (DM, HTN, Smoking, COPD, CAD, Cancer, CVA, ARF, Chemo, Hep., AIDS, mental health diagnosis, sleep apnea, morbid obesity)? @ -None Was patient admitted / discharged? Hospital course, mention meds given and route, prescriptions, significant lab abnormalities, going to OR and other pertinent info. @ -Discharged. Patient presented to the emergency department for evaluation of early in hopes of termination. Discussed with patient that we do not have the ability to prescribe medication for termination in the ED. UA was obtained which shows no evidence of infectious process including no bacteria. She did have a positive urine hCG. Discussed options with patient for follow-up including [facility], this [facility], [facility]. Patient understanding agreeable with this. Patient stable at time of discharge. Case discussed with Dr. Tee. Undiagnosed new problem with uncertain prognosis? @ -No Drug Therapy requiring intensive monitoring for toxicity (Heparin, Nitro, Insulin, Cardizem)? @ -No Were any procedures done? @ -No Diagnosis/symptom? @ -Early Acute, or Chronic, or Acute on Chronic? @ -acute Uncomplicated (without systemic symptoms) or Complicated (systemic symptoms)? @ -uncomplicated Side effects of treatment? @ -No Exacerbation, Progression, or Severe Exacerbation? @ -No Poses a threat to life or bodily function? How? (Chest pain, [place], [place], pneumonia, PE, COPD, DKA, ARF, appy, cholecystitis, CVA, Diverticulitis, Homicidal, Suicidal, threat to staff... and all critical care pts) @ -No - Lab Data Lab Results 01/07/24 01/07/24 Range/Units 18:35 18:35 Urine Color Colorless Urine Appearance Clear (Clear) Urine pH 6.5 (5.0-8.0) Ur Specific [place] 1.004 (1.001-1.035) Urine Protein Negative (Negative) Urine Glucose (UA) Negative (Negative) Urine Ketones Negative (Negative) Urine Blood Negative (Negative) Urine Nitrite Negative (Negative) Urine Bilirubin Negative (Negative) Urine Urobilinogen <2.0 (<2.0) mg/dL Ur Leukocyte Esterase Negative (Negative) Urine HCG, Qual Detected (Not Detectd) Disposition Clinical Impression: Early stage of Disposition: HOME SELF-CARE Condition: Stable Instructions (If sedation given, give patient instructions): (ED) Additional Instructions: Please follow-up with [facility] or the [facility]. [address] [address] Text Call Is patient prescribed a controlled substance at d/c from ED?: No Referrals: None,Stated [Primary Care Provider] - 1-2 days Gavino Lei MD [STAFF PHYSICIAN] - 1-2 days Samina Juárez DO [Doctor of Osteopathic Medicine] - 1-2 days Mely Robin MD [STAFF PHYSICIAN] - 1-2 days Joyce Lopez MD [STAFF PHYSICIAN] - 1-2 days
[2024-01-07 19:01] VITALS: TEMP 98.2
[2024-01-07 19:17] LABS: Appearance,Urine Clear (Clear); Bilirubin,Urine Negative (Negative); Blood,Urine Negative (Negative); Color,Urine Colorless; Glucose,Urine (UA) Negative (Negative); Ketones,Urine Negative (Negative); Leukocyte Esterase,Urine Negative (Negative); Nitrite,Urine Negative (Negative); PH, Urine 6.5 (5.0-8.0); Protein,Urine Negative (Negative); Specific Gravity,Urine 1.004 (1.001-1.035); Urobilinogen,Urine <2.0 mg/dL (<2.0)
[2024-01-07 20:04] VITALS: BP 111/69; PULSE 78; RESP 18
== END 2024-01-07 19:32 | disposition home or self-care (01) ==
LOC: EC 18:12
DX: Z34.91 Encounter for supervision of normal pregnancy, unspecified, first trimester (principal); F17.290 Nicotine dependence, other tobacco product, uncomplicated; Z88.0 Allergy status to penicillin
CPT/HCPCS: 81003; 81025; 87491; 87591; 99283

== ENCOUNTER 2024-01-24 10:53 | Emergency (ER) | payer OTHER ==
--- NOTE | 2024-01-24 11:12 | ED ---
Chest Pain HPI - General Chief Complaint: Chest Pain Stated Complaint: chest pains/back pain Time Seen by Provider: 01/24/24 11:00 Source: patient, RN notes reviewed Mode of arrival: ambulatory Limitations: no limitations - History of Present Illness Initial Comments: This is a 18-year-old female who presents to the emergency department for chest pain and back pain. Patient is 8 weeks and . States that she woke up with pain in the left side of her chest radiating into the back. Pain is described as sharp/shooting. She has mild nausea associated with . Denies any abdominal pain or vaginal bleeding. She has no shortness of breath associated with the chest pain. Denies any personal or family history of cardiac issues. Believes that she has had similar problems in the past. MD Complaint: chest pain - Related Data Home Medications Medication Instructions Recorded Confirmed HYDROcodone/APAP 5-325MG [[place] 1 - 2 tab PO Q4HR PRN 12/04/20 12/04/20 5-325] Ibuprofen [Advil] 400 mg PO Q8H PRN 12/04/20 12/04/20 Previous Rx's Medication Instructions Recorded Azithromycin [Zithromax Z Pack] 250 mg PO DAILY 4 Days #4 tab 12/02/22 Butenafine HCl [Lotrimin Ultra] 1 applic TOPICAL BID #24 gm 10/05/23 Acetaminophen-Codeine 300-30mg 1 tab PO Q6H PRN 3 Days #12 tablet 11/03/23 [Tylenol w/codeine #3] Allergies Allergy/AdvReac Type Severity Reaction Status Date / Time Penicillins Allergy Unknown Itching Verified 01/24/24 10:57 Review of Systems ROS Statement: Those systems with pertinent positive or pertinent negative responses have been documented in the HPI. ROS Other: All systems not noted in ROS Statement are negative. 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 History of Any Multi-Drug Resistant Organisms: None Reported Past Surgical History: No Surgical Hx Reported Past Psychological History: Anxiety Smoking Status: Vaper Past Alcohol Use History: None Reported Past Drug Use History: None Reported - Past Family History Mother Family Medical History: Congestive Heart Failure (CHF), Diabetes Mellitus, Hypertension Additional Family Medical History / Comment(s): Patient's maternal grandparents due to CHF/diabetes/HTN per mother. Father Family Medical History: Congestive Heart Failure (CHF), Diabetes Mellitus Additional Family Medical History / Comment(s): Patient's paternal grandparents have diabetes and HTN. General Exam Limitations: no limitations General appearance: alert, in no apparent distress Head exam: Present: atraumatic, normocephalic, normal inspection Respiratory exam: Present: normal lung sounds bilaterally. Absent: respiratory distress, wheezes, rales, rhonchi, stridor, chest wall tenderness Cardiovascular Exam: Present: regular rate, normal rhythm, normal heart sounds. Absent: systolic murmur, diastolic murmur, rubs, gallop, clicks Neurological exam: Present: alert, oriented X3, CN II-XII intact Psychiatric exam: Present: normal affect, normal mood Skin exam: Present: warm, dry, intact, normal color. Absent: rash Course Vital Signs 01/24/24 01/24/24 01/24/24 10:54 13:57 15:20 Temperature 97.7 F 97.9 F Pulse Rate 112 H 105 H 9 L Respiratory 18 16 18 Rate Blood Pressure 147/83 98/71 100/56 O2 Sat by Pulse 98 98 99 Oximetry Chest Pain MDM - MDM This is a 18 year old female who presents to the emergency department for chest pain. Was pt. sent in by a medical professional or institution? @ -No Did you speak to anyone other than the patient for history? @ -No Did you review nursing and triage notes? @ -Yes, and I agree, it is accurate with regards to the patient's symptoms. Were old charts reviewed? @ -No Differential Diagnosis? @ -Differential Chest Pain: Stable Angina, Unstable Angina, STEMI, NSTEMI Aortic Dissection, Pneumothorax, Musculoskeletal, Esophageal Spasm GERD, Cholecystitis, Pancreatitis, Zoster, this is not meant to be an all-inclusive list. EKG interpreted by me (3pts min.)? @ -EKG interpreted by me demonstrating the following: Sinus tachycardia. Ve ntricular rate 102 bpm, VA interval 124 ms, QRS duration 93 ms, QTc 402 ms. X-rays interpreted by me (1pt min.)? @ -Chest x-ray obtained, my interpretation identifies no localized consolidations or infiltrates. CT interpreted by me (1pt min.)? @ -Not obtained U/S interpreted by me (1pt. min.)? @ -Not obtained What testing was considered but not performed? (CT, X-rays, U/S, labs)? Why? @ -None What meds were considered but not given? Why? @ -None Did you discuss the management of the patient with other professionals? @ -No Did you reconcile home meds? @ -No Was smoking cessation discussed for >3mins.? @ -No Was critical care preformed (if so, how long)? @ -No Were there social determinants of health that impacted care today? How? (Homelessness, low income, unemployed, alcoholism, drug addiction, transportation, low edu. Level, literacy, decrease access to med. care, intermediate, rehab)? @ -No Was there de-escalation of care discussed even if they declined? (Discuss DNR or withdrawal of care, Hospice)? @ -No What co-morbidities impacted this encounter? (DM, HTN, Smoking, COPD, CAD, Cancer, CVA, Hep., AIDS, mental health diagnosis, sleep apnea, morbid obesity)? @ - Was patient admitted / discharged? @ Discharged. Lab work unremarkable including a negative troponin and negative D-dimer. COVID, influenza, and RSV testing were negative. Urinalysis negative for signs of infection. Discussed the option of a chest x-ray with the patient and risks of radiation exposure in , and she requested to proceed. Chest x-ray demonstrates no acute process. Patient treated with IV fluids and Tylenol with improvement in symptoms. Advised taking Tylenol as needed for pain relief and following up with her [facility] and primary care provider. Patient discharged home in stable condition. Undiagnosed new problem with uncertain prognosis? @ -None Drug Therapy requiring intensive monitoring for toxicity (Heparin, Nitro, Insulin, Cardizem)? @ -None Were any procedures done? @ -None Diagnosis/symptom? @ -Atypical chest pain Acute, or Chronic, or Acute on Chronic? @ -Acute Uncomplicated (without systemic symptoms) or Complicated (systemic symptoms)? @ -Uncomplicated Side effects of treatment? @ -None Exacerbation, Progression, or Severe Exacerbation] @ -Not applicable Poses a threat to life or bodily function? @ -No Return precautions reviewed in depth, the patient is instructed to return to the emergency department with any new, worsening, or concerning symptoms. Patient verbalized understanding. This case was discussed in detail with the attending ED physician, Dr. Hodge. Presentation, findings, and treatment plan discussed in detail as well. Disposition Clinical Impression: Atypical chest pain Disposition: HOME SELF-CARE Instructions (If sedation given, give patient instructions): Chest Pain (ED) Additional Instructions: Return to the emergency department with any new, worsening, or concerning symptoms. Take Tylenol as needed for pain relief. Follow up with your primary care provider in 1-2 days. Is patient prescribed a controlled substance at d/c from ED?: No Referrals: None,Stated [Primary Care Provider] - 1-2 days Time of Disposition: 15:25
[2024-01-24] MEDS: ACETAMINOPHEN TAB 500 MG TAB PO STA (11:22)
[2024-01-24] MEDS: SODIUM CHLORIDE 0.9% 1,000 ML IV STA (11:22)
--- NOTE | 2024-01-24 11:45 | XR ---
EXAMINATION TYPE: XR chest 2V DATE OF EXAM: 01/24/2024 11:12 AM CLINICAL INDICATION:Female, 18 years old with history of Chest Pain; [facility] COMPARISON: Chest radiographs from 10/27/2023. TECHNIQUE: XR chest 2V Frontal and lateral views of the chest. FINDINGS: Lungs/Pleura: There is no evidence of pleural effusion, focal consolidation, or pneumothorax. Pulmonary vascularity: Unremarkable. Heart/mediastinum: Cardiomediastinal silhouette is unremarkable. Musculoskeletal: No acute osseous pathology. Other findings: None IMPRESSION: No acute cardiopulmonary disease/process.
[2024-01-24 11:56] LABS: Basophils % (A) 0 %; Eosinophils # (A) 0.1 k/uL (0-0.7); Eosinophils % (A) 1 %; HCT 39.3 % (34.0-46.0); HGB 13.4 gm/dL (11.4-16.0); Lymphocytes # (A) 0.9 k/uL (1.0-4.8); Lymphocytes % (A) 12 %; MCHC 34.2 g/dL (31.0-37.0); MCV 90.6 fL (80.0-100.0); Mean Platelet Volume 7.8; Monocytes # (A) 0.3 k/uL (0-1.0); Monocytes % (A) 4 %; Neutrophils # (A) 6.2 k/uL (1.3-7.7); Neutrophils % (A) 81 %; Platelet Count 200 k/uL (150-450); RBC 4.33 m/uL (3.80-5.40); RDW 12.2 % (11.5-15.5); WBC 7.7 k/uL (4.0-11.0)
[2024-01-24 12:32] LABS: ALT 10 U/L (4-34); AST 24 U/L (14-36); African American GFR (CKD) >90 (>60 ml/min/1.73 sqM); Albumin 4.2 g/dL (3.5-5.0); Alkaline Phosphatase 49 U/L (38-126); Anion Gap 11 mmol/L; Blood Urea Nitrogen 7 mg/dL (7-17); Calcium 9.4 mg/dL (8.4-10.2); Carbon Dioxide 19 mmol/L (22-30); Chloride 106 mmol/L (98-107); Glucose 87 mg/dL (74-99); Magnesium 1.8 mg/dL (1.6-2.3); Non-African American GFR(CKD) >90 (>60 ml/min/1.73 sqM); Sodium 136 mmol/L (137-145); Total Bilirubin 0.9 mg/dL (0.2-1.3); Total Protein 7.3 g/dL (6.3-8.2)
[2024-01-24 12:34] LABS: Potassium 3.9 mmol/L (3.5-5.1)
[2024-01-24 13:22] LABS: Appearance,Urine Clear (Clear); Bilirubin,Urine Negative (Negative); Blood,Urine Negative (Negative); Color,Urine Yellow; Glucose,Urine (UA) Negative (Negative); Ketones,Urine 3+ (Negative); Leukocyte Esterase,Urine Negative (Negative); Nitrite,Urine Negative (Negative); PH, Urine 7.5 (5.0-8.0); Protein,Urine Trace (Negative); Specific Gravity,Urine 1.025 (1.001-1.035)
[2024-01-24 13:44] LABS: Partial Thromboplastin Time 27.2 sec (22.0-30.0); Prothrombin Time 10.7 sec (10.0-12.5)
[2024-01-24 15:30] VITALS: BP 100/56; PULSE 9; RESP 18; TEMP 97.9
== END 2024-01-24 15:30 | disposition home or self-care (01) ==
LOC: EC 10:53
DX: O99.891 Other specified diseases and conditions complicating pregnancy (principal); I45.10 Unspecified right bundle-branch block; Z88.0 Allergy status to penicillin; Z3A.08 8 weeks gestation of pregnancy
CPT/HCPCS: 36415; 71046; 80053; 81003; 83735; 84484; 84702; 85025; 85379; 85610; 85730; 87636; 93005; 96360; 99285

== ENCOUNTER 2024-02-22 19:01 | Emergency (ER) | payer OTHER ==
--- NOTE | 2024-02-22 19:09 | ED ---
General Adult HPI - General Chief complaint: Nausea/Vomiting/Diarrhea Stated complaint: Vomiting Time Seen by Provider: 02/22/24 19:09 Source: patient, RN notes reviewed Mode of arrival: ambulatory Limitations: no limitations - History of Present Illness Initial comments: 18-year-old female presents emergency department for evaluation of sore throat, cough, congestion. Symptoms have been going on since Thursday. She denies fever. Also admits to nausea and vomiting. Reports other sick contacts with similar symptoms. - Related Data Home Medications Medication Instructions Recorded Confirmed HYDROcodone/APAP 5-325MG [R[place]to 1 - 2 tab PO Q4HR PRN 12/04/20 12/04/20 5-325] Ibuprofen [Advil] 400 mg PO Q8H PRN 12/04/20 12/04/20 Previous Rx's Medication Instructions Recorded Azithromycin [Zithromax Z Pack] 250 mg PO DAILY 4 Days #4 tab 12/02/22 Butenafine HCl [Lotrimin Ultra] 1 applic TOPICAL BID #24 gm 10/05/23 Acetaminophen-Codeine 300-30mg 1 tab PO Q6H PRN 3 Days #12 tablet 11/03/23 [Tylenol w/codeine #3] Allergies Allergy/AdvReac Type Severity Reaction Status Date / Time Penicillins Allergy Unknown Itching Verified 02/22/24 19:05 Review of Systems ROS Statement: Those systems with pertinent positive or pertinent negative responses have been documented in the HPI. ROS Other: All systems not noted in ROS Statement are negative. 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 History of Any Multi-Drug Resistant Organisms: None Reported Past Surgical History: No Surgical Hx Reported Past Psychological History: Anxiety Smoking Status: Vaper Past Alcohol Use History: None Reported Past Drug Use History: None Reported - Past Family History Mother Family Medical History: Congestive Heart Failure (CHF), Diabetes Mellitus, Hypertension Additional Family Medical History / Comment(s): Patient's maternal grandparents due to CHF/diabetes/HTN per mother. Father Family Medical History: Congestive Heart Failure (CHF), Diabetes Mellitus Additional Family Medical History / Comment(s): Patient's paternal grandparents have diabetes and HTN. General Exam - General Exam Comments Initial Comments: Visual Physical Exam Vital signs reviewed General: Well-appearing, nontoxic, no acute distress. Head: Normocephalic, atraumatic Eyes: PERRLA, EOMI ENT: Airway patent Chest: Nonlabored breathing Skin: No visual rash, normal skin tone Neuro: Alert and oriented 3 Musculoskeletal: No gross abnormalities Limitations: no limitations General appearance: alert, in no apparent distress Head exam: Present: atraumatic, normocephalic, normal inspection Eye exam: Present: normal appearance, PERRL, EOMI. Absent: scleral icterus, conjunctival injection, periorbital swelling ENT exam: Present: normal exam, mucous membranes moist, TM's normal bilaterally, normal external ear exam Neck exam: Present: normal inspection. Absent: tenderness, meningismus, lymphadenopathy Respiratory exam: Present: normal lung sounds bilaterally. Absent: respiratory distress, wheezes, rales, rhonchi, stridor Cardiovascular Exam: Present: regular rate, normal rhythm, normal heart sounds. Absent: systolic murmur, diastolic murmur, rubs, gallop, clicks GI/Abdominal exam: Present: soft. Absent: distended, tenderness, guarding, rebound, rigid Extremities exam: Present: normal inspection, full ROM, normal capillary refill. Absent: tenderness, pedal edema, joint swelling, calf tenderness Back exam: Present: normal inspection Neurological exam: Present: alert, oriented X3 Psychiatric exam: Present: normal affect, normal mood Skin exam: Present: warm, dry, intact, normal color. Absent: rash Course Vital Signs 02/22/24 02/22/24 19:03 22:02 Temperature 98.1 F Pulse Rate 102 H 99 Respiratory 20 18 Rate Blood Pressure 135/87 125/81 O2 Sat by Pulse 100 100 Oximetry Medical Decision Making - Medical Decision Making Quick note performed, electronically signed by Marissa Davis PA-C Was pt. sent in by a medical professional or institution (HEMA Torres, PROBATION COUNSELOR, urgent care, hospital, or care home...) When possible be specific @ -No Did you speak to anyone other than the patient for history (EMS, parent, family, police, friend...)? What history was obtained from this source @ -No Did you review nursing and triage notes (agree or disagree)? Why? @ -I reviewed and agree with nursing and triage notes Were old charts reviewed (outside hosp., previous admission, EMS record, old EKG, old radiological studies, urgent care reports/EKG's, care home records)? Report findings @ -No old charts were reviewed Differential Diagnosis (chest pain, altered mental status, abdominal pain women, abdominal pain men, vaginal bleeding, weakness, fever, dyspnea, syncope, headache, dizziness, GI bleed, back pain, seizure, CVA, palpatations, mental health, musculoskeletal)? @ -COVID, influenza, RSV, strep pharyngitis, viral gastroenteritis, viral URI EKG interpreted by me (3pts min.). @ -None X-rays interpreted by me (1pt min.). @ -Chest x-ray shows no evidence of acute process CT interpreted by me (1pt min.). @ -None done U/S interpreted by me (1pt. min.). @ -None done What testing was considered but not performed or refused? (CT, X-rays, U/S, labs)? Why? @ -None What meds were considered but not given or refused? Why? @ -None Did you discuss the management of the patient with other professionals (professionals i.e. , PA, PROBATION COUNSELOR, lab, RT, psych nurse, social studies teacher, divorce lawyer, teacher, chief growth officer, case management manager)? Give summary @ -No Was smoking cessation discussed for >3mins.? @ -No Was critical care preformed (if so, how long)? @ -No Were there social determinants of health that impacted care today? How? (Homelessness, low income, unemployed, alcoholism, drug addiction, transportation, low edu. Level, literacy, decrease access to med. care, custodial, rehab)? @ -No Was there de-escalation of care discussed even if they declined (Discuss DNR or withdrawal of care, Hospice)? DNR status @ -No What co-morbidities impacted this encounter? (DM, HTN, Smoking, COPD, CAD, Cancer, CVA, ARF, Chemo, Hep., AIDS, mental health diagnosis, sleep apnea, morbid obesity)? @ -None Was patient admitted / discharged? Hospital course, mention meds given and route, prescriptions, significant lab abnormalities, going to OR and other pertinent info. @ -Discharged. Patient presented to the emergency department for evaluation of cough, congestion, sore throat, nausea and vomiting. Notes other sick contacts with the same symptoms. Patient tested for COVID, influenza, RSV, strep pharyngitis which were negative. Chest XR shows no acute infiltrate. Discussed findings with patient along with symptomatic treatment. Patient understanding and agreeable with plan. Patient stable at time of discharge. Case discussed with Dr. Hodge Undiagnosed new problem with uncertain prognosis? @ -No Drug Therapy requiring intensive monitoring for toxicity (Heparin, Nitro, Insulin, Cardizem)? @ -No Were any procedures done? @ -No Diagnosis/symptom? @ -Viral syndrome Acute, or Chronic, or Acute on Chronic? @ -acute Uncomplicated (without systemic symptoms) or Complicated (systemic symptoms)? @ -uncomplicated Side effects of treatment? @ -No Exacerbation, Progression, or Severe Exacerbation? @ -No Poses a threat to life or bodily function? How? (Chest pain, [place], [place], pneumonia, PE, COPD, DKA, ARF, appy, cholecystitis, CVA, Diverticulitis, Homicidal, Suicidal, threat to staff... and all critical care pts) @ -No - Lab Data Lab Results 02/22/24 02/22/24 Range/Units 19:07 21:18 Influenza Type A (PCR) Not Detected (Not Detectd) Influenza Type B (PCR) Not Detected (Not Detectd) RSV (PCR) Not Detected (Not Detectd) SARS-CoV-2 (PCR) Not Detected (Not Detectd) Group A Strep (PCR) NOT DETECTED (Not Detectd) Disposition Clinical Impression: Viral upper respiratory illness Disposition: HOME SELF-CARE Condition: Stable Instructions (If sedation given, give patient instructions): Upper Respiratory Infection (ED), Acute Nausea and Vomiting (ED) Additional Instructions: Please utilize symptomatic treatment including over the counter cough medicines and decongestants. Follow up with your primary care provider. Return to the emergency department for new or worsening symptoms. Is patient prescribed a controlled substance at d/c from ED?: No Referrals: None,Stated [Primary Care Provider] - 1-2 days
[2024-02-22 19:31] VITALS: TEMP 98.1
--- NOTE | 2024-02-22 19:31 | XR ---
EXAMINATION TYPE: XR chest 2V DATE OF EXAM: 02/22/2024 COMPARISON: 01/24/2024 HISTORY: Cough TECHNIQUE: Frontal and lateral views of the chest are obtained. FINDINGS: There is no focal air space opacity, pleural effusion, or pneumothorax seen. The cardiac silhouette size is within normal limits. The osseous structures are intact. IMPRESSION: No acute cardiopulmonary process.
[2024-02-22] MEDS: ONDANSETRON ODT 4 MG TAB PO STA (21:15)
[2024-02-23 02:21] VITALS: BP 125/81; PULSE 99; RESP 18
== END 2024-02-22 22:02 | disposition home or self-care (01) ==
LOC: EC 19:01
DX: J06.9 Acute upper respiratory infection, unspecified (principal); F17.290 Nicotine dependence, other tobacco product, uncomplicated; Z88.0 Allergy status to penicillin
CPT/HCPCS: 71046; 87636; 87651; 99284

== ENCOUNTER 2024-08-29 13:45 | Emergency (ER) | payer SELFPAY ==
[2024-08-29 14:26] VITALS: BP 158/100; PULSE 90; RESP 16; TEMP 98.2
--- NOTE | 2024-08-29 14:39 | ED ---
Female Urogenital HPI - General Source: patient, RN notes reviewed Mode of arrival: ambulatory Limitations: no limitations - History of Present Illness Onset/Timin -: month(s) <Navid Mitchell - Last Filed: 08/29/24 14:38> <Ryan Harrison - Last Filed: 09/02/24 23:21> - General Chief complaint: Urogenital Stated complaint: Urogenital Time Seen by Provider: 08/29/24 14:01 - History of Present Illness Initial comments: Quick note: This is a 19-year-old female presenting with amenorrhea x 6 months. Patient states she had a D&C 6 months ago and has not had a period since that time, causing her concern. Patient otherwise denies pain, vaginal discharge or other symptoms. (Navid Mitchell) 19-year-old female presenting with chief complaint of amenorrhea. Patient's LMP was back in November. Patient was found to be and was seen at [facility], she took misoprostol and had no follow-up afterwards. Patient did have bleeding afterwards, but since then has not had a normal menstrual period. She denies any abdominal pain, vaginal bleeding or discharge, urinary symptoms, headache, blurry vision. (Ryan Harrison) - Related Data Home Medications Medication Instructions Recorded Confirmed No Known Home Medications 09/01/24 09/01/24 Allergies Allergy/AdvReac Type Severity Reaction Status Date / Time Penicillins Allergy Unknown Itching Verified 08/29/24 17:53 Review of Systems ROS Other: All systems not noted in ROS Statement are negative. <Navid Mitchell - Last Filed: 08/29/24 14:38> ROS Other: All systems not noted in ROS Statement are negative. <Ryan Harrison - Last Filed: 09/02/24 23:21> ROS Statement: Those systems with pertinent positive or pertinent negative responses have been documented in the HPI. 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 History of Any Multi-Drug Resistant Organisms: None Reported Past Surgical History: No Surgical Hx Reported Past Psychological History: Anxiety Smoking Status: Vaper Past Alcohol Use History: None Reported Past Drug Use History: None Reported - Past Family History Mother Family Medical History: Congestive Heart Failure (CHF), Diabetes Mellitus, Hypertension Additional Family Medical History / Comment(s): Patient's maternal grandparents due to CHF/diabetes/HTN per mother. Father Family Medical History: Congestive Heart Failure (CHF), Diabetes Mellitus Additional Family Medical History / Comment(s): Patient's paternal grandparents have diabetes and HTN. <Navid Mitchell - Last Filed: 08/29/24 14:38> General Exam Limitations: no limitations <Navid Mitchell - Last Filed: 08/29/24 14:38> General appearance: alert, in no apparent distress Head exam: Present: atraumatic, normocephalic, normal inspection Eye exam: Present: normal appearance, EOMI Neck exam: Present: normal inspection. Absent: meningismus Respiratory exam: Absent: respiratory distress Cardiovascular Exam: Present: regular rate Neurological exam: Present: alert, oriented X3 Psychiatric exam: Present: normal affect, normal mood Skin exam: Present: warm, dry <Ryan Harrison - Last Filed: 09/02/24 23:21> - General Exam Comments Initial Comments: Visual Physical Exam Vital signs reviewed General: Well-appearing, nontoxic, no acute distress. Head: Normocephalic, atraumatic Eyes: PERRLA, EOMI ENT: Airway patent Chest: Nonlabored breathing Skin: No visual rash, normal skin tone Neuro: Alert and oriented 3 Musculoskeletal: No gross abnormalities (Navid Mitchell) Course Vital Signs 08/29/24 14:24 Temperature 98.2 F Pulse Rate 90 Respiratory 16 Rate Blood Pressure 158/100 O2 Sat by Pulse 99 Oximetry Medical Decision Making <Navid Mitchell - Last Filed: 08/29/24 14:38> <Ryan Harrison - Last Filed: 09/02/24 23:21> - Medical Decision Making I completed the quick note portion of this chart signed TRIPP [employer]ero (Navid Mitchell) Was pt. sent in by a medical professional or institution (HEMA Torres, SHOT DROPPER, urgent care, hospital, or half-way...) When possible be specific @ -No Did you speak to anyone other than the patient for history (EMS, parent, family, police, friend...)? What history was obtained from this source @ -No Did you review nursing and triage notes (agree or disagree)? Why? @ -I reviewed and agree with nursing and triage notes Were old charts reviewed (outside hosp., previous admission, EMS record, old EKG, old radiological studies, urgent care reports/EKG's, half-way records)? Report findings @ -No old charts were reviewed Differential Diagnosis (chest pain, altered mental status, abdominal pain women, abdominal pain men, vaginal bleeding, weakness, fever, dyspnea, syncope, headache, dizziness, GI bleed, back pain, seizure, CVA, palpatations, mental health, musculoskeletal)? @ -Differential includes , dysfunctional uterine bleeding, this is not an all-inclusive list EKG interpreted by me (3pts min.). @ -As above X-rays interpreted by me (1pt min.). @ -None done CT interpreted by me (1pt min.). @ -None done U/S interpreted by me (1pt. min.). @ -Ultrasound shows single live intrauterine gestation approximately 37 weeks What testing was considered but not performed or refused? (CT, X-rays, U/S, labs)? Why? @ -Labs ordered, however nursing staff contacted labor and delivery, they advised the patient report to L&D triage What meds were considered but not given or refused? Why? @ -None Did you discuss the management of the patient with other professionals (professionals i.e. , PA, SHOT DROPPER, lab, RT, psych nurse, social insurance analyst, land use planner, teacher, u.s. revenue officer, director of casework services)? Give summary @ -No Was smoking cessation discussed for >3mins.? @ -No Was critical care preformed (if so, how long)? @ -No Were there social determinants of health that impacted care today? How? (Homelessness, low income, unemployed, alcoholism, drug addiction, transportation, low edu. Level, literacy, decrease access to med. care, detention, rehab)? @ -No Was there de-escalation of care discussed even if they declined (Discuss DNR or withdrawal of care, Hospice)? DNR status @ -No What co-morbidities impacted this encounter? (DM, HTN, Smoking, COPD, CAD, Cancer, CVA, ARF, Chemo, Hep., AIDS, mental health diagnosis, sleep apnea, morbid obesity)? @ -None Was patient admitted / discharged? Hospital course, mention meds given and route, prescriptions, significant lab abnormalities, going to OR and other pertinent info. @ -19-year-old female presenting with chief complaint of amenorrhea. LMP back in November. She did take misoprostol back in January through [facility]. Ultrasound was obtained which shows viable single intrauterine gestation measuring approximately 37 weeks. Patient is hypertensive with blood pressure 158/100. Patient is formed of today's results and is crying. Labs are ordered to rule out preeclampsia, however nursing staff contacts labor and delivery who advises the patient reported up to L&D triage, she is immediately sent to L&D triage. My attending is Dr. Sales Undiagnosed new problem with uncertain prognosis? @ -No Drug Therapy requiring intensive monitoring for toxicity (Heparin, Nitro, Insulin, Cardizem)? @ -No Were any procedures done? @ -No Diagnosis/symptom? @ -37 weeks gestation of Acute, or Chronic, or Acute on Chronic? @ -Acute Uncomplicated (without systemic symptoms) or Complicated (systemic symptoms)? @ -Uncomplicated Side effects of treatment? @ -No Exacerbation, Progression, or Severe Exacerbation? @ -No Poses a threat to life or bodily function? How? (Chest pain, [place], [place], pneumonia, PE, COPD, DKA, ARF, appy, cholecystitis, CVA, Diverticulitis, Homicidal, Suicidal, threat to staff... and all critical care pts) @ -Potential due to preeclampsia (Ryan Harrison) Disposition <Navid Mitchell - Last Filed: 08/29/24 14:38> - Out of Hospital Transfer - Req. Specs Out of Hospital Transfer - Requested Specifics: Other Emergency Center (Sent up to OB triage) <Ryan Harrison - Last Filed: 09/02/24 23:21> Clinical Impression: 37 weeks gestation of Disposition: ADMITTED IP TO THIS HOSP Condition: Serious Referrals: [facility] [NON-STAFF] - 1-2 days [facility] [NON-STAFF] - 1-2 days None,Stated [Primary Care Provider] - 1-2 days Forms: Area PCPs
--- NOTE | 2024-08-29 16:01 | US ---
EXAMINATION TYPE: US OB >= 14 wk fetus DATE OF EXAM: 08/29/2024 COMPARISON: None CLINICAL INDICATION: Female, 19 years old with history of Amenorrhea; Pt states she took pil l back in January, vaginal bleeding x 2 days, but no vaginal bleeding since. TECHNIQUE: Transabdominal (TA) FINDINGS: GESTATIONAL AGE / DATING Physician Established: Not yet established Dates by LMP: LMP unknown Dates by First Scan: No previous this is first scan Dates by Current Scan: (37 weeks/0 days) EDC: 09/19/2024 SURVEY IUP: Single PLACENTA: Anterior PREVIA: No Previa KEVIN: 4.4 cm Oligohydramnios CERVICAL LENGTH (transabdominal: norm > 3.0cm): 3.0 cm BIOMETRY PRESENTATION: Vertex BPD: 9.0 cm 36 weeks / 4 days HC: 32.8 cm 37 weeks / 2 days AC: 31.5 cm 35 weeks / 3 days FL: 7.5 cm 38 weeks / 3 days ESTIMATED WEIGHT IN GRAMS: 2967 grams ESTIMATED WEIGHT IN LBS/OZ: 6 lbs. 9 oz. HC/AC: 1.0 Normal FL/AC: 24 Normal HEART RATE: 134 bpm RHYTHM: Normal Single, viable IUP- Low KEVIN IMPRESSION: 1. Single intrauterine gestation 37 weeks 0 days gestation. Cardiac activity measures 134 bpm. 2. KEVIN of 4.4 is very low [facility], , 08/29/2024 3:58 PM
== END 2024-08-29 17:51 | disposition other institution (70) ==
LOC: EC 13:45
DX: O26.893 Other specified pregnancy related conditions, third trimester (principal); N91.2 Amenorrhea, unspecified; O99.333 Smoking (tobacco) complicating pregnancy, third trimester; F17.290 Nicotine dependence, other tobacco product, uncomplicated; Z3A.37 37 weeks gestation of pregnancy; Z88.0 Allergy status to penicillin
CPT/HCPCS: 76805; 99284

== ENCOUNTER 2024-08-29 17:40 | Outpatient (CLI) | payer SELFPAY ==
[2024-08-29 19:14] LABS: Basophils % (A) 0 %; Eosinophils % (A) 0 %; HCT 36.3 % (34.0-46.0); Lymphocytes # (A) 1.4 k/uL (1.0-4.8); Lymphocytes % (A) 23 %; MCH 30.4 pg (25.0-35.0); MCHC 33.1 g/dL (31.0-37.0); MCV 91.7 fL (80.0-100.0); Mean Platelet Volume 9.3; Monocytes # (A) 0.2 k/uL (0-1.0); Monocytes % (A) 3 %; Neutrophils # (A) 4.3 k/uL (1.3-7.7); Neutrophils % (A) 71 %; Platelet Count 170 k/uL (150-450); RBC 3.96 m/uL (3.80-5.40); RDW 14.3 % (11.5-15.5); WBC 6.1 k/uL (3.8-10.6)
[2024-08-29 19:24] LABS: ALT 11 U/L (4-34); AST 24 U/L (14-36); African American GFR (CKD) >90 (>60 ml/min/1.73 sqM); Blood Urea Nitrogen 8 mg/dL (7-17); Glucose 81 mg/dL (74-99); LDH 216 U/L (120-246); Non-African American GFR(CKD) >90 (>60 ml/min/1.73 sqM); Uric Acid 4.6 mg/dL (3.7-7.4)
[2024-08-29 19:35] LABS: Appearance,Urine Clear (Clear); Bilirubin,Urine Negative (Negative); Blood,Urine Negative (Negative); Color,Urine Colorless; Glucose,Urine (UA) Negative (Negative); Ketones,Urine Negative (Negative); Leukocyte Esterase,Urine Negative (Negative); Nitrite,Urine Negative (Negative); Protein,Urine Trace (Negative); Urobilinogen,Urine <2.0 mg/dL (<2.0)
[2024-08-29 19:42] LABS: Creatinine,Urine Random 82.6 mg/dL; Protein/Creatinine Ratio,Urine 0.412
[2024-08-29 19:45] LABS: Amphetamine Screen,Urine Not Detected (NotDetected); Barbiturate Screen,Urine Not Detected (NotDetected); Benzodiazepines Screen,Urine Not Detected (NotDetected); Cocaine Screen,Urine Not Detected (NotDetected); Methadone Screen, Urine Not Detected (NotDetected); Opiate Screen,Urine Not Detected (NotDetected); Oxycodone Screen, Urine Not Detected (NotDetected); Phencyclidine Screen,Urine Not Detected (NotDetected); Tricyclic Antidepressant,Urine Not Detected (NotDetected); Urn Cannabinoid Scrn Not Detected (NotDetected)
--- NOTE | 2024-08-29 20:22 | P.HPOB ---
History of Present Illness H&P Date: 08/29/24 Chief Complaint: abdominal pain, amenorrhea Ms. Hilario is a 19 year old at approximately 37 weeks and 4 days by LMP of 12-10-2023 consistent with biometry on US today who did not know she was until today. She did have an undesired in January for which she was prescribed Mifepristone followed by buccal Misoprostol for termination of the . This was followed by 2 days of heavy bleeding and cramping. [facility] with [facility] test, she did take this and it was positive. She did not have any additional follow up visits or care after this. Prior to conception she had regular monthly menses. On presentation today, she has mildly elevated blood pressures and a urine P:C of 0.4 meeting the diagnosis of pre-eclampsia without severe features. The patient denies headache, visual changes, and right upper quadrant pain. In addition, the fetus is noted to have oligohydramnios with KEVIN of 4 on US today. The fetus is estimated to be 6 pounds and 9 ounces by US today. 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 History of Any Multi-Drug Resistant Organisms: None Reported Past Surgical History: No Surgical Hx Reported Smoking Status: Vaper - Past Family History Mother Family Medical History: Congestive Heart Failure (CHF), Diabetes Mellitus, Hypertension Additional Family Medical History / Comment(s): Patient's maternal grandparents due to CHF/diabetes/HTN per mother. Father Family Medical History: Congestive Heart Failure (CHF), Diabetes Mellitus Additional Family Medical History / Comment(s): Patient's paternal grandparents have diabetes and HTN. Medications and Allergies Allergies Allergy/AdvReac Type Severity Reaction Status Date / Time Penicillins Allergy Unknown Itching Verified 08/29/24 17:53 Exam Intake and Output 08/29/24 08/29/24 08/29/24 06:59 14:59 22:59 Other: Weight 58.967 kg Focused physical exam is performed. This is a healthy-appearing in no apparent distress. Breathing is non-labored. Abdomen is gravid and non-tender. Cervical exam is closed, long, and -1 station per OB RN. Extremities non- tender and non-edematous. heart tones are reactive and reassuring on NST and irritability traced on the tocometer. Of note, there were 2 variables on the heart tracing upon arrival to the unit. Results Result Diagrams: 08/29/24 19:00 08/29/24 19:00 Abnormal Lab Results - Last 24 Hours (Table) 08/29/24 08/29/24 Range/Units 19:00 19:22 Creatinine 0.50 L (0.52-1.04) mg/dL Urine Protein Trace H (Negative) Assessment and Plan Assessment: 19 year old at 37 weeks and 4 days by LMP consistent with US today with no care (did not know she was ), newly diagnosed pre-eclampsia without severe features, and oligohydramnios; baby up for adoption Plan: 19 year old at 37 weeks and 4 days by LMP c/w US today, no PNC (found out she was today), newly diagnosed pre-eclampsia without severe features, and oligohydramnios on US. Admission with induction of labor for pre-eclampsia without severe features and oligohydramnios is strongly recommended to the patient for maternal and well-being. The patient states she needs time to process this news and also starts a new job tomorrow, for which she would like to be there for her first day. I discussed the risks of demise, placental abruption, heart attack, stroke, seizures, and maternal with the patient. She understands these risks and desires to sign AGAINST MEDICAL ADVICE paperwork to leave and start her first day at the new job tomorrow. She states she will return to L&D after her shift tomorrow. I advised the patient that she should return to L&D even soon if she has intractable headache, visual disturbances, RUQ pain, shortness of breath, contractions, vaginal bleeding, leakage of fluid, or no perceived movement. The patient voices understanding and will sign the AMA paperwork. All questions answered. Time with Patient: Greater than 30 (45 minutes)
[2024-08-29 21:13] VITALS: BP 137/93; PULSE 83; RESP 16; TEMP 98
[2024-08-30 03:33] LABS: Hepatitis B Surface Antigen Nonreactive (Nonreactive)
[2024-08-30 05:30] LABS: HIV 2 AB Non-Reactive (Non-Reactive); HIV AB P24 Non-Reactive (Non-Reactive); HIV P24 AG Non-Reactive (Non-Reactive)
== END 2024-08-29 20:21 | disposition left against medical advice (07) ==
LOC: FBPOP 17:40
PROVIDERS: ATTEND Obstetrics & Gynecology
DX: O14.03 Mild to moderate pre-eclampsia, third trimester (principal); O41.03X0 Oligohydramnios, third trimester, not applicable or unspecified; O09.33 Supervision of pregnancy with insufficient antenatal care, third trimester; O26.893 Other specified pregnancy related conditions, third trimester; R10.9 Unspecified abdominal pain; O99.333 Smoking (tobacco) complicating pregnancy, third trimester; F17.290 Nicotine dependence, other tobacco product, uncomplicated; Z3A.37 37 weeks gestation of pregnancy; Z88.0 Allergy status to penicillin
CPT/HCPCS: 36415; 59025; 80306; 81003; 82565; 82570; 82947; 83615; 84156; 84450; 84460; 84520; 84550; 85025; 86762; 86780; 86850; 86900; 86901; 87086; 87340; 87390; 87491; 87591; 99215

== ENCOUNTER 2024-09-01 21:23 | Inpatient (IN) | payer OTHER ==
--- NOTE | 2024-09-01 22:54 | US ---
EXAMINATION TYPE: US OB >= 14 wk fetus DATE OF EXAM: 09/01/2024 COMPARISON: Ultrasound 3 days earlier CLINICAL INDICATION: Female, 19 years old with history of KEVIN, dates, size; KEVIN, dates, size. N o care TECHNIQUE: Transabdominal (TA) FINDINGS: GESTATIONAL AGE / DATING Physician Established: Not established Dates by LMP: (38weeks/0 days) EDC: 09/15/24 Dates by First Scan: (37weeks/3 days) EDC: 09/19/24 Dates by Current Scan: (37weeks/5 days) EDC: 09/17/24 SURVEY IUP: Single PLACENTA: Anterior. There are multiple anechoic areas seen within, largest measuring 1.9 x 1.2cm PREVIA: No Previa KEVIN: 7.6cm Normal CERVICAL LENGTH (transabdominal: norm > 3.0cm): 3.3cm BIOMETRY PRESENTATION: Vertex LIE: Longitudinal BPD: 9.13cm 37weeks / 1 days HC: 34.53cm 40weeks / 0 days AC: 31.09cm 35weeks / 1 days FL: 7.46cm 38weeks / 2 days ESTIMATED WEIGHT IN GRAMS: 2984 grams ESTIMATED WEIGHT IN LBS/OZ: 6 lbs. 9 oz. WEIGHT PERCENTAGE BASED ON ESTABLISHED DATES: 27% HC/AC: 1.11Normal FL/AC: 24Normal HEART RATE: 155bpm RHYTHM: Normal Single live intrauterine gestation redemonstrated. No cervical thinning. Normal cephalad presentation redemonstrated. No placenta previa. Estimated amniotic fluid index remains within normal limits. Fet al biometry measurements congruent and within normal limits. IMPRESSION: As above. [facility], , 09/01/2024 10:52 PM
[2024-09-01] MEDS ORDERED: LABETALOL 5 MG/ML VIAL MDV IVP PRN ×3 (23:02)
[2024-09-01] MEDS ORDERED: hydrALAZINE HCL 20 MG/ML 1 ML VIAL IVP PRN (23:02)
[2024-09-01 23:19] LABS: Appearance,Urine Cloudy (Clear); Bacteria,Urine Occasional /hpf; Bilirubin,Urine 1+ (Negative); Blood,Urine Negative (Negative); Color,Urine Yellow; Glucose,Urine (UA) Negative (Negative); Ketones,Urine 1+ (Negative); Leukocyte Esterase,Urine Small (Negative); Mucus,Urine Many /hpf; Nitrite,Urine Negative (Negative); Protein,Urine 2+ (Negative); RBC,Urine 1 /hpf (0-5); Specific Gravity,Urine 1.032 (1.001-1.035); Squamous Epithelial Cell,Urine 9 /hpf (0-4); WBC,Urine 3 /hpf (0-5)
[2024-09-01 23:23] LABS: ALT 10 U/L (4-34); AST 22 U/L (14-36); African American GFR (CKD) >90 (>60 ml/min/1.73 sqM); Blood Urea Nitrogen 8 mg/dL (7-17); LDH 221 U/L (120-246); Non-African American GFR(CKD) >90 (>60 ml/min/1.73 sqM); Uric Acid 4.7 mg/dL (3.7-7.4)
[2024-09-01 23:30] LABS: Basophils % (A) 0 %; Eosinophils % (A) 0 %; HCT 33.1 % (34.0-46.0); HGB 10.8 gm/dL (11.4-16.0); Lymphocytes # (A) 1.4 k/uL (1.0-4.8); Lymphocytes % (A) 20 %; MCH 29.5 pg (25.0-35.0); MCHC 32.4 g/dL (31.0-37.0); MCV 90.9 fL (80.0-100.0); Mean Platelet Volume 9.4; Monocytes # (A) 0.2 k/uL (0-1.0); Monocytes % (A) 3 %; Neutrophils # (A) 5.3 k/uL (1.3-7.7); Neutrophils % (A) 76 %; Platelet Count 168 k/uL (150-450); RBC 3.64 m/uL (3.80-5.40); RDW 14.2 % (11.5-15.5); WBC 7.1 k/uL (3.8-10.6)
[2024-09-02 00:20] LABS: INR 0.9 (<1.2); Partial Thromboplastin Time 25.1 sec (22.0-30.0); Prothrombin Time 9.9 sec (10.0-12.5)
[2024-09-02 00:27] LABS: Creatinine,Urine Random 413.9 mg/dL; Protein/Creatinine Ratio,Urine 0.251
[2024-09-02] MEDS ORDERED: miSOPROStoL 200 MCG TAB RECTAL PRN (00:36)
[2024-09-02] MEDS ORDERED: miSOPROStoL 200 MCG TAB PO PRN (00:36)
[2024-09-02] MEDS ORDERED: TRANEXAMIC 1,000 MG/100ML-NACL 1,000 MG in EMPTY BAG 1 BAG IV PRN (00:36)
[2024-09-02] MEDS ORDERED: OXYTOCIN 10 UNIT/ML 1 ML VIAL IM PRN (00:36)
[2024-09-02] MEDS ORDERED: CARBOPROST TROMETHAMINE 250 MCG/ML 1 ML AMP IM PRN (00:36)
[2024-09-02] MEDS ORDERED: TERBUTALINE 1 MG/ML VIAL SQ PRN (00:36)
[2024-09-02] MEDS ORDERED: METHYLERGONOVINE 0.2 MG/ML 1 ML AMP IM PRN (00:36)
[2024-09-02 00:58] VITALS: RESP 16
[2024-09-02] MEDS: LACTATED RINGERS 1,000 ML IV SCH (01:03)
[2024-09-02] MEDS: OXYTOCIN 30 UNITS/500 ML NS 30 UNIT in SALINE 1 500ML.BAG IV SCH ×2 (01:06→17:02)
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
[2024-09-02] MEDS: NALBUPHINE 10 MG/ML (10 ML MDV) IV PRN (07:51)
--- NOTE | 2024-09-02 07:53 | P.MSEPDOC ---
Presenting Problems - Arrival Data Date of Arrival on Unit: 09/01/24 Time of Arrival on Unit: 21:23 Mode of Transport: Portable - Complaint OB-Reason for Admission/Chief Complaint: Other Comment: Patient presents to L&D stating she was instructed to return to L&D to be induced to deliver because her BP was high and her beena was low. Patient states she is not keeping "it" and wants to talk to a web content & social media manager about leaving "it" here after she delivers. Patient states she is feeling movement, denies bleeding or loss of fluid Medical History - Information : 1 Para: 0 Term: 0 : 0 Abortions: Spontaneous or Elective: 0 Number of Living Children: 0 - Gestational Age Gestational Age by ANNABELLA (wks/days): 37 Weeks and 6 Days - History Complications: No Care Review of Systems - Review of Systems Constitutional: No problems Breast: No problems ENT: No problems Cardiovascular: No problems Respiratory: No problems Gastrointestinal: No problems Genitourinary: No problems Musculoskeletal: No problems Neurological: No problems Skin: No problems Vital Signs - Temperature Temperature: 97.6 F Temperature Source: Temporal Artery Scan - Pulse Pulse Oximetery Pulse Rate: 88 Pulse Assessment Method: Pulse Oximetry - Respirations Respiratory Rate: 16 Oxygen Delivery Method: Room Air O2 Sat by Pulse Oximetry: 99 - Blood Pressure Sitting Blood Pressure: 130/92 Blood Pressure Mean: 104 Blood Pressure Source: Automatic Cuff Medical Screen Scoring - Cervical Exam Dilation (cm): 0 Effacement (%): 60 Station: -2 Membranes: Intact - Assessment - Baby A Baseline FHR: 140 Heart Rate - NICHD Category: Category I (Normal) NST: Reactive Physician Notification - Physician Notified Physician Notified Date: 09/02/24 Physician Notified Time: 00:33 Physician: Samina Juárez New Order Received: Yes - Notification Comment Comment: Call placed to Dr Juárez. Review of labs, EFM and SVE with Dr Juárez. Orders received to admit patient, start pitocin, patient may get epidural when she's dilated and uncomfortable. Maternal Triage Index - Stat/Priority 1 Stat Priority 1: No - Urgent/Priority 2 Urgent Priority 2: No - Prompt/Priority 3 Prompt Priority 3: Yes Criteria Met for Priority 3: Call placed to Dr Tremp. Review of labs, EFM and SVE with Dr Juárez. Orders received to admit patient, start pitocin, patient may get epidural when she's dilated and uncomfortable. Disposition - Disposition OB Disposition: Admit I agree with the RN Medical Screening Exam: Yes Case reviewed; plan agreed upon as documented in EMR&OBIX.: Yes Diagnosis: OTHER SPECIFIED COMPLICATIONS OF LABOR AND DELIVERY
[2024-09-02] MEDS ORDERED: fentaNYL (PF) 50 MCG/ML 5 ML AMP ONE (09:45)
[2024-09-02] MEDS ORDERED: ROPIVACAINE 5 MG/ML 30 ML VIAL ONE (09:45)
[2024-09-02] MEDS ORDERED: SODIUM CHLORIDE 0.9% 250 ML BAG ONE (09:45)
[2024-09-02] MEDS ORDERED: HYDROCORTISONE 2.5% RECTAL CREAM 30 GM TUBE RECTAL PRN (16:27)
[2024-09-02] MEDS ORDERED: diphenhydrAMINE 25 MG CAP PO PRN (16:27)
[2024-09-02] MEDS ORDERED: ZOLPIDEM 5 MG TAB PO PRN (16:27)
[2024-09-02] MEDS ORDERED: BENZOCAINE/MENTHOL SPRAY 1 GM/SPRAY AEROSOL TOPICAL PRN (16:27)
[2024-09-02] MEDS ORDERED: SIMETHICONE 80 MG CHEWABLE PO PRN (16:27)
[2024-09-02] MEDS ORDERED: diphenhydrAMINE 50 MG CAP PO PRN (16:27)
[2024-09-02] MEDS ORDERED: diphenhydrAMINE 50 MG/ML 1 ML VIAL IVP PRN ×2 (16:27)
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
[2024-09-02] MEDS: LIDOCAINE 0.5% (PF) 5 MG/ML (50 ML SDV) SQ PRN (17:00)
[2024-09-02] MEDS: IBUPROFEN 800 MG TAB PO PRN (18:38)
[2024-09-02] MEDS: LABETALOL 100 MG TAB PO SCH (19:00)
[2024-09-02] MEDS: SENNOSIDES-DOCUSATE SODIUM 1 EACH TAB PO SCH (19:43)
[2024-09-02] MEDS: ACETAMINOPHEN TAB 500 MG TAB PO PRN (19:43)
[2024-09-02 20:10] VITALS: TEMP 98
[2024-09-03 01:53] LABS: Basophils % (A) 0 %; Eosinophils % (A) 0 %; HCT 29.2 % (34.0-46.0); HGB 9.4 gm/dL (11.4-16.0); Lymphocytes # (A) 1.1 k/uL (1.0-4.8); Lymphocytes % (A) 14 %; MCH 29.6 pg (25.0-35.0); MCHC 32.1 g/dL (31.0-37.0); MCV 92.3 fL (80.0-100.0); Mean Platelet Volume 10.7; Monocytes # (A) 0.3 k/uL (0-1.0); Monocytes % (A) 4 %; Neutrophils # (A) 6.2 k/uL (1.3-7.7); Neutrophils % (A) 81 %; Platelet Count 140 k/uL (150-450); RBC 3.17 m/uL (3.80-5.40); RDW 14.7 % (11.5-15.5); WBC 7.7 k/uL (3.8-10.6)
[2024-09-03 05:14] VITALS: PULSE 63
[2024-09-03 11:17] VITALS: BP 143/80
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
== END 2024-09-03 12:30 | disposition home or self-care (01) | DRG 806 ==
LOC: FBPOP 21:23 → 4FBP 09-02 00:40
PROVIDERS: ADMIT Obstetrics & Gynecology Obstetrics; ATTEND Obstetrics & Gynecology Obstetrics
PROC: 10E0XZZ Delivery of Products of Conception, External Approach (ICD-10-PCS; principal; 2024-09-02)
PROC: 3E033VJ Introduction of Other Hormone into Peripheral Vein, Percutaneous Approach (ICD-10-PCS; 2024-09-02)
PROC: 0W8NXZZ Division of Female Perineum, External Approach (ICD-10-PCS; 2024-09-02)
DX: O13.4 Gestational [pregnancy-induced] hypertension without significant proteinuria, complicating childbirth (principal); O41.03X0 Oligohydramnios, third trimester, not applicable or unspecified; Z37.0 Single live birth; O9A.42 Sexual abuse complicating childbirth; Z3A.37 37 weeks gestation of pregnancy; O99.334 Smoking (tobacco) complicating childbirth; F17.290 Nicotine dependence, other tobacco product, uncomplicated; O12.14 Gestational proteinuria, complicating childbirth
CPT/HCPCS: 59025; 76805; 81001; 82565; 82570; 83615; 84156; 84450; 84460; 84520; 84550; 85025; 85384; 85610; 85730; 86850; 86900; 86901; 99213